=== PATIENT | male | born 1945 | race Caucasian/White ===

== ENCOUNTER 2017-10-03 14:47 | Inpatient (IN) | payer OTHER, BC ==
[2017-10-03 14:58] VITALS: BMI 17.7
--- NOTE | 2017-10-03 15:47 | DR.GENAD ---
HPI - PCP Primary Care Physician: ANAIS STODDARD - HPI Comment HPI Comment: PCP DR. COELLO PATIENT EVALUATED TODAY. HE HAVE COUGH AND CONGESTION FOR SEVERAL DAYS NOW. HAVING CHEST PAIN. - Complaint/Symptoms Chief Complaint Doctors Comments: SEIZURE AT THE [facility]. RELATIVES CALLED AND HERE FOR EVALUATION. HE IS WEAK AND HAVING HESDACHE. NO FEVER. RELATIVES SAY HE IS NOT COMPLAINT WITH HIS SEIZURE MEDICATION. 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 FAMILY STATES PT. HAS A HX. OF SEIZURES AND THE PT. HAD SLID OUT OF HIS CHAIR AT THE HOME. THEY BELIEVE TO THINK PT. HAD A SEIZURE BECAUSE ONCE THE FAMILY ARRIVED, PT. WAS INCOHERENT AND IN A DAZE. PT. ALSO HAS C/C/C. - Nurses notes reviewed Nurses Notes Review: Yes - Source History Provided: Family Member - Mode of Arrival Mode of Arrival: Wheelchair - Timing Onset of Chief Complaint: 10/03/17 Came on: Suddenly - Duration Duration: Constant Duration: Hours - Severity Severity: Moderate PMH - PMH Past Medical History: Yes Past Medical History: Hypertension, Seizures Past Medical History Comment: POOR CIRCULATION, OCCULDED CAROTID ARTERY Past Surgical History: Yes Surgical History: Ortho Surgery, Other Past Surgical History Comment: RIGHT BKA, HERNIA - Family History History of Family Medical Conditions: Yes Family Medical History Comment: ALCHOLISM - Social History Does patient currently use any type of tobacco product: Yes Have you used tobacco products in the last 12 months: Yes Type of Tobacco Use: Cigarettes Does any household member use tobacco: No Alcohol Use: None Do you use any recreational Drugs:: No Lives Where: Assisted Care - infectious screening In the last 2 months have you had wt loss of >10#?: NO Have you had fever, night sweats or hemotysis?: No Have you traveled outside the country in the last 6 months?: No Isolation: Standard ROS - Review of Systems Constitutional: Weakness, Fatigue. negative: Chills, Fever Eyes: No Symptoms Reported ENTM: No Symptoms Reported. negative: Ear Pain, Nose Discharge, Nose Congestion , Throat Pain Respiratoy: Non-Productive Cough, Short of Breath. negative: Wheezing, Hemoptysis Cardiovascular: Chest Pain Gastrointestinal/Abdominal: Abdominal Pain Genitourinary: No Symptoms Reported Neurological: Headache, Seizure, Weakness, Dizziness, Problems Walking Musculoskeletal: Joint Pain, Joint Swelling, Muscle Pain Integumentary: No Symptoms Reported, Other (RT BKA) Hematologic/Lymphatic: No Symptoms Reported Endocrine: No Symptoms Reported All Other Systems: Reviewed and Negative PE - Vital Signs Vitals: Temperature 99.1 F Pulse Rate [Apical] 96 Pulse Rate 100 Respiratory Rate 20 Blood Pressure [Left Arm] 100/55 Blood Pressure 127/59 O2 Sat by Pulse Oximetry 98 - General Limitations: No Limitations General Appearance: Alert - Head Head Exam: Normal Inspection - Eyes Eye exam: Normal Appearance - ENT ENT Exam: Normal External Ear Exam External Ear Exam: Normal External Inspection TM/Canal Exam: Bilateral Normal Nose Exam: Normal Nose Exam Mouth Exam: Normal Inspection Throat Exam: Normal Inspection - Neck Neck Exam: Trachea Midline - Chest Chest Inspection: Symmetric Chest Wall Rise - Respiratory Respiratory Exam: Normal Lung Sounds Bilat Respiratory Exam: Bilateral Clear to Auscultation - Cardiovascular Cardiovascular Exam: Regular Rate, Normal Rhythm, Normal Heart Sounds - Abdominal Exam Abdominal Exam: Normal Bowel Sounds, Soft. negative: Tenderness - Extremities Extremities Exam: Tenderness (RT BKA.) - Back Back Exam: Normal Inspection - Neurologic Neurological Exam: Alert, Oriented X3 - Psychiatric Psychiatric Exam: Normal Affect, Normal Mood - Skin Skin Exam: Normal Color MDM - Additional Information Additional Information Obtained From: Family - Differential Diagnosis Differential Diagnosis: SEIZURE, [place], GENERALIZE WEAKNESS, CVA, AMS Course - Treatment Treatment: SEE ORDERS. PATIENT TO TRANSFER TO CARDIOLOGY SERVICE. HE DID NOT WISH TO GO . WANT TO STAY AT THIS HOSPITAL HE WILL ACCEPT CARE WITHOUT CARDIOLOGY. - Education/Counseling Education/Counseling: Patient, Family, Education Educated On: Treatment, Diagnosis, Needs for Follow Up ROR - Labs Reviewed Laboratory Results Reviewed?: Yes Result Diagrams: 10/03/17 16:41 10/04/17 05:55 Laboratory: WBC 9.4 X10^3/uL (3.6-10.0) 10/03/17 16:41 RBC 4.09 X10^6/uL (4.7-6.0) L 10/03/17 16:41 Hgb 14.0 g/dL (13.5-18.0) 10/03/17 16:41 Hct 40.2 % (42.0-54.0) L 10/03/17 16:41 MCV 98.5 fL (80.0-100.0) 10/03/17 16:41 MCH 34.3 pg (27.0-34.0) H 10/03/17 16:41 MCHC 34.9 g/dL (33.0-35.0) 10/03/17 16:41 RDW 13.0 % (11.6-16.5) 10/03/17 16:41 Plt Count 137 X10^3/uL (150.0-450.0) L 10/03/17 16:41 MPV 8.6 fL (7.4-11.0) 10/03/17 16:41 Neut % 73.2 % (42.0-75.0) 10/03/17 16:41 Lymph % 15.7 % (21.0-51.0) L 10/03/17 16:41 [place] % 10.6 % (0.0-13.0) 10/03/17 16:41 Eos % 0.1 % (0.9-2.9) L 10/03/17 16:41 Baso % 0.4 % (0.2-1.0) 10/03/17 16:41 Neut # 6.9 x10^3/uL (2.2-4.8) H 10/03/17 16:41 Lymph # 1.5 X10^3/uL (1.3-2.9) 10/03/17 16:41 [place] # 1.0 x10^3/uL (0.3-0.8) H 10/03/17 16:41 Eos # 0.0 x10^3/uL (0.0-0.2) 10/03/17 16:41 Baso # 0.0 X10^3/uL (0.0-0.1) 10/03/17 16:41 Absolute Nucleated RBC 0.1 /100WBC 10/03/17 16:41 INR Target Range - 10/04/17 05:55 INR 1.11 (0.8-1.3) 10/04/17 05:55 PTT 46.2 SECONDS (22.9-36.5) H 10/04/17 05:55 PTT Comment - 10/04/17 05:55 Sodium 137 mmol/L (136-145) 10/04/17 05:55 Corrected Sodium TNP 10/04/17 05:55 Potassium 3.7 mmol/L (3.5-5.1) 10/04/17 05:55 Chloride 102 mmol/L (98-107) 10/04/17 05:55 Carbon Dioxide 25.5 mmol/L (21-32) 10/04/17 05:55 BUN 17 mg/dL (7-18) 10/04/17 05:55 Creatinine 0.92 mg/dL (0.70-1.30) 10/04/17 05:55 Est GFR (MDRD) Af Amer > 60 (>60) 10/04/17 05:55 Est GFR (MDRD) Non-Af > 60 (>60) 10/04/17 05:55 Glucose 78 mg/dL (65-99) 10/04/17 05:55 Calcium 7.9 mg/dL (8.5-10.1) L 10/04/17 05:55 Corrected Calcium 8.8 mg/dL (8.5-10.1) 10/04/17 05:55 Magnesium 1.8 mg/dL (1.7-2.9) 10/04/17 05:55 Total Bilirubin 0.20 mg/dL (0.2-1.0) 10/04/17 05:55 AST 99 Units/L (15-37) H 10/04/17 05:55 ALT 52 Units/L (12-78) 10/04/17 05:55 Alkaline Phosphatase 101 Units/L (46-116) 10/04/17 05:55 Creatine Kinase 3225 Units/L (39-308) H 10/04/17 02:00 CK-MB (CK-2) 7.2 ng/mL (0-4.0) H* 10/04/17 02:00 CK/CKMB % Calc 0.2 % (<4) 10/04/17 02:00 Troponin I 0.31 ng/mL (0-1.5) 10/04/17 02:00 Total Protein 6.3 g/dL (6.4-8.2) L 10/04/17 05:55 Albumin 2.9 g/dL (3.4-5.0) L 10/04/17 05:55 Globulin 3.4 g/dL (2.5-4.5) 10/04/17 05:55 Albumin/Globulin Ratio 0.9 Ratio (1.1-2.1) L 10/04/17 05:55 Triglycerides 74 mg/dL (0-150) 10/04/17 05:55 Cholesterol 131 mg/dL (0-200) 10/04/17 05:55 LDL Cholesterol, Calc 79 mg/dL (0-100) 10/04/17 05:55 HDL Cholesterol 37 mg/dL (40-60) L 10/04/17 05:55 Cholesterol/HDL Ratio 3.5 (0.0-5.0) 10/04/17 05:55 Specimen Type Clean catch urine 10/03/17 22:25 Urine Color Yellow (YELLOW) 10/03/17 22:25 Urine Appearance Clear (CLEAR) 10/03/17 22:25 Urine pH 5.0 (5.0 - 8.0) 10/03/17 22:25 Ur Specific [place] 1.020 (1.000-1.030) 10/03/17 22:25 Urine Protein 2+ (NEGATIVE) 10/03/17 22:25 Urine Glucose (UA) Negative (NEGATIVE) 10/03/17 22:25 Urine Ketones 1+ (NEGATIVE) 10/03/17 22:25 Urine Occult Blood 4+ (NEGATIVE) 10/03/17 22:25 Urine Nitrite Negative (NEGATIVE) 10/03/17 22:25 Urine Bilirubin Negative (NEGATIVE) 10/03/17 22:25 Urine Urobilinogen Normal (NORMAL) 10/03/17 22:25 Ur Leukocyte Esterase 1+ (NEGATIVE) 10/03/17 22:25 Urine RBC 4-8 /HPF (NEGATIVE) 10/03/17 22:25 Urine WBC 0-3 /HPF (NEGATIVE) 10/03/17 22:25 Ur Squamous Epith Cells Few /HPF (NEGATIVE) 10/03/17 22:25 Urine Bacteria Trace /HPF (NEGATIVE) 10/03/17 22:25 Urine Mucus Many /HPF (NEGATIVE) 10/03/17 22:25 Ur Culture Indicated? No/not indicated 10/03/17 22:25 Phenytoin 16.0 ug/mL (10-20) 10/04/17 05:55 - XRAY XRAY Findings: REPORT DISCUSS WITH PATIENT AND FAMILY. - EKG Rhythm: NSR (EKG NOTED.) - Diagnosis Discharge Problem: Abnormal cardiac enzyme level, Seizure Rhabdomyolysis Qualifiers: Rhabdomyolysis type: traumatic Encounter type: initial encounter Qualified Code (s): T79.6XXA - Traumatic ischemia of muscle, initial encounter - Discharge Plan Disposition: 09 ADMITTED INPATIENT Condition: Stable - Follow ups/Referrals - Instructions
--- NOTE | 2017-10-03 16:54 | RAD ---
Examination: Chest, PA and lateral views History: Seizure Findings: Normal heart size, essentially clear lungs and pleural spaces. There is no hilar or mediast inal disease. Rib fracture deformities are observed but do not appear acute. Impression: No acute chest findings. Reported By:
--- NOTE | 2017-10-03 17:03 | CT ---
HISTORY: Altered mental status Study: CT of the head Comparison: None Technique: Serial axial images were obtained from the skullbase to the vertex without infusion of IV contrast. Findings: The ventricles, sulci, and cisterns demonstrate an appearance consistent with a mild degree of genera lized atrophy. Patchy areas of decreased attenuation within the periventricular, subcortical, and sub insular white matter suggest changes of chronic small vessel ischemic disease. No evidence of signifi cant midline shift is identified. Images demonstrate partial opacification and mucosal thickening of the ethmoid air cells. Mild mucosal thickening of the bilateral maxillary sinuses and right sphenoid sinus are noted as well. If symptoms or clinical concern persist recommend continued follow-up for fu rther evaluation. IMPRESSION: No evidence of acute intracranial abnormality is appreciated. Mild generalized atrophy with findings consistent with changes of chronic small vessel ischemic disea se. Ethmoid, maxillary, and sphenoid sinus disease as noted above. Reported By:
[2017-10-03 17:13] LABS: BASOPHILS % (AUTO) 0.4 % (0.2-1.0); EOSINOPHILS % (AUTO) 0.1 % (0.9-2.9); HEMATOCRIT 40.2 % (42.0-54.0); LYMPHOCYTES # (AUTO) 1.5 X10^3/uL (1.3-2.9); LYMPHOCYTES % (AUTO) 15.7 % (21.0-51.0); MEAN CORPUSCULAR HEMOGLOBIN 34.3 pg (27.0-34.0); MEAN CORPUSCULAR HGB CONC 34.9 g/dL (33.0-35.0); MEAN CORPUSCULAR VOLUME 98.5 fL (80.0-100.0); MEAN PLATELET VOLUME 8.6 fL (7.4-11.0); MONOCYTES % (AUTO) 10.6 % (0.0-13.0); NEUTROPHILS # (AUTO) 6.9 x10^3/uL (2.2-4.8); NEUTROPHILS % (AUTO) 73.2 % (42.0-75.0); PLATELET COUNT 137 X10^3/uL (150.0-450.0); RED BLOOD COUNT 4.09 X10^6/uL (4.7-6.0); WHITE BLOOD COUNT 9.4 X10^3/uL (3.6-10.0)
[2017-10-03 17:30] LABS: BLOOD UREA NITROGEN 25 mg/dL (7-18); CALCIUM 8.9 mg/dL (8.5-10.1); CARBON DIOXIDE 29.3 mmol/L (21-32); CHLORIDE 100 mmol/L (98-107); CREATININE 1.03 mg/dL (0.70-1.30); SODIUM 136 mmol/L (136-145); TROPONIN I 0.45 ng/mL (0-1.5); eGFR BLACK RACES > 60 (>60); eGFR NON BLACK RACES > 60 (>60)
[2017-10-03 17:53] LABS: ALANINE AMINOTRANSFERASE 50 Units/L (12-78); ALBUMIN 3.6 g/dL (3.4-5.0); ALKALINE PHOSPHATASE 139 Units/L (46-116); ASPARTATE AMINO TRANSFERASE 73 Units/L (15-37); TOTAL PROTEIN 7.5 g/dL (6.4-8.2)
[2017-10-03 18:01] LABS: CKMB % 0.3 % (<4); CREATINE KINASE MB 8.8 ng/mL (0-4.0)
[2017-10-03 18:02] LABS: CREATINE KINASE 2699 Units/L (39-308)
[2017-10-03] MEDS ORDERED: CEREBYX INJ IVP ONE (19:21)
[2017-10-03 19:36] LABS: TROPONIN I 0.37 ng/mL (0-1.5)
[2017-10-03 19:38] LABS: CKMB % 0.3 % (<4)
[2017-10-03 19:39] LABS: CREATINE KINASE MB 8.2 ng/mL (0-4.0)
[2017-10-03] MEDS ORDERED: NS 100 ML IV 100 ML IV ONE (19:45)
[2017-10-03] MEDS ORDERED: PEPCID 20 MG IV PREMIX* 0 MG/0 ML BAG IV ONE (20:12)
[2017-10-03] MEDS ORDERED: PHENERGAN INJ 25 MG ONE (20:12)
[2017-10-03] MEDS ORDERED: NITROSTAT SL PRN (20:43)
[2017-10-03] MEDS ORDERED: ASPIRIN 81 MG CHEWTAB PO ONE (20:45)
[2017-10-03] MEDS ORDERED: DILANTIN CAP 100 MG EXT REL PO ONE (20:47)
[2017-10-03] MEDS: DILANTIN CAP 100 MG EXT REL PO SCH (22:02)
[2017-10-03] MEDS: NITRO-BID OINT 2% Multi-Dose tube TD SCH (22:02)
[2017-10-03] MEDS: NICOTINE PATCH TD SCH (22:11)
[2017-10-03] MEDS: NS 1000 ML 1,000 ML IV SCH (22:43)
[2017-10-03 22:56] LABS: BILIRUBIN,URINE NEGATIVE (NEGATIVE); BLOOD/HEMOGLOBIN,URINE 4+ (NEGATIVE); GLUCOSE, URINE NEGATIVE (NEGATIVE); KETONES,URINE 1+ (NEGATIVE); LEUKOCYTE ESTERASE ,URINE 1+ (NEGATIVE); NITRITES,URINE NEGATIVE (NEGATIVE); PROTEIN,URINE 2+ (NEGATIVE); UROBILINOGEN,URINE NORMAL (NORMAL)
[2017-10-03 23:16] LABS: APPEARANCE,URINE CLEAR (CLEAR); BACTERIA,URINE TRACE /HPF (NEGATIVE); COLOR,URINE YELLOW (YELLOW); MUCUS,URINE MANY /HPF (NEGATIVE); SQUAMOUS EPITHELIAL CELL,UR FEW /HPF (NEGATIVE)
[2017-10-03] MEDS ORDERED: MILK OF MAGNESIA PO PRN (23:53)
[2017-10-04] MEDS: COLACE CAP 100 MG PO SCH ×2 (02:31→21:08)
[2017-10-04 02:50] LABS: TROPONIN I 0.31 ng/mL (0-1.5)
[2017-10-04 02:56] LABS: CKMB % 0.2 % (<4); CREATINE KINASE MB 7.2 ng/mL (0-4.0)
[2017-10-04] MEDS: NITRO-BID OINT 2% Multi-Dose tube TD SCH ×4 (03:06→21:08)
[2017-10-04 06:43] LABS: ALANINE AMINOTRANSFERASE 52 Units/L (12-78); ALBUMIN 2.9 g/dL (3.4-5.0); ALKALINE PHOSPHATASE 101 Units/L (46-116); ASPARTATE AMINO TRANSFERASE 99 Units/L (15-37); BLOOD UREA NITROGEN 17 mg/dL (7-18); CALCIUM 7.9 mg/dL (8.5-10.1); CARBON DIOXIDE 25.5 mmol/L (21-32); CHLORIDE 102 mmol/L (98-107); CHOL/HDL RATIO 3.5 (0.0-5.0); CHOLESTEROL 131 mg/dL (0-200); COR CA(FOR HYPOALB) 8.8 mg/dL (8.5-10.1); CREATININE 0.92 mg/dL (0.70-1.30); HDL CHOLESTEROL 37 mg/dL (40-60); MAGNESIUM 1.8 mg/dL (1.7-2.9); SODIUM 137 mmol/L (136-145); TOTAL PROTEIN 6.3 g/dL (6.4-8.2); TRIGLYCERIDES 74 mg/dL (0-150); eGFR BLACK RACES > 60 (>60); eGFR NON BLACK RACES > 60 (>60)
[2017-10-04] MEDS: NICOTINE PATCH TD SCH (09:13)
[2017-10-04] MEDS: CHECK PATCH XX SCH ×2 (09:14→21:09)
[2017-10-04] MEDS: NS 1000 ML 1,000 ML IV SCH (09:16)
[2017-10-04] MEDS ORDERED: TYLENOL 325 MG TAB PO PRN (11:11)
[2017-10-04] MEDS ORDERED: ULTRAM PO PRN (11:11)
[2017-10-04] MEDS: VITAMIN C PO SCH ×2 (13:12→21:04)
[2017-10-04] MEDS: HEMOCYTE-PLUS PO SCH (13:12)
[2017-10-04] MEDS: PEPCID TAB 20 MG PO SCH ×2 (13:12→21:04)
[2017-10-04] MEDS: INDERAL TAB 10 MG PO SCH ×2 (13:12→21:04)
--- NOTE | 2017-10-04 13:18 | DR.H&P ---
H&P - History & Physical for Day of: H&P Date: 10/03/17 - Chief Complaint Chief Complaint: seizure activity - Allergies Allergies/Adverse Reactions: Allergies Allergy/AdvReac Type Severity Reaction Status Date / Time donepezil [From Aricept] Allergy Verified 10/03/17 20:57 Penicillins Allergy Verified 10/03/17 20:57 potassium Allergy Verified 10/03/17 20:57 potassium chloride Allergy Verified 10/03/17 20:57 SURGICAL TAPE Allergy Uncoded 10/03/17 20:57 - History of Present Illness History of Present Illness: is a 72 year old patient of ours who as brought to the emergency room by his family with reports of seizure activity. Patients family reports that he is a resident at [facility] in [place], [place]. They report that patient slid out of his chair at the home and was on the ground for an unknown amount of time. When staff arrived and found patient, he was noted to be incoherent and in a daze. Upon awaking, patient reported smelling something. Family reports that patient has a history significant for seizure disorder, and they believe that he had a seizure today. They also report that patient has had cough, cold, and congestion for the past week. Medical history includes: Seizure disorder, skin cancer, anxiety, HTN, Right BKA, and hernia repair. On arrival to the hospital patient noted to be oriented. Heart is regular in rate and rhythm. Bilateral lungs are noted to be clear to auscultation. Abdomen is round, soft, and non- tender with normal bowel sounds noted in all quadrants. He is noted to have had a right BKA. Weakness noted to all other extremities. On arrival, his vitals were 99.1, 100, 17, 94% RA, 127/59. Labs were obtained. Abnormal Labs include the following: RBC 4.09, Hct 40.2, MCH 34.3, Plt Count 137, BUN 25, AST 73, Alk Phos 139, Creatine Kinase 2699, 2807, CKMB 8.8, 8.2, A/G Ratio 0.9, Phenytoin 1.4. Urinalysis revealed: Protein 2+, Ketones 1+, Occult Blood 4+, Leuk Est 1+, RBC 4-8, WBC 0-3, Bacteria Trace, Mucus Many. EKG reports: Sinus Rhythm. Rate= 96. Chest X-Ray reports: No acute chest findings. Brain CT reports: No evidence of acute intracranial abnormality is appreciated. Mild generalized atrophy with findings consistent with changes of chronic small vessel ischemic disease. Ethmoid, maxillary and sphenoid sinus disease as noted above. Patient given a one-time dose of Cerebyx for low phenytoin of 1.4. Elevated creatine kinase and CKMB of 8.8 is indicative of rhabdomyolysis. We admitted patient to the hospital for further treatment and evaluation. We started him on Normal saline at 75ml/hr for rehydration. Due to elevated cardiac enzymes, we will also obtain serial cardiac enzymes and EKGs. We plan to follow up with AM labs and continue to monitor patient. - Past Medical History Past Medical History: Anxiety, Hypertension, Seizures Additional Medical History: skin cancer - Past Surgical History Surgical History: Ortho Surgery, Other Additional Surgical History: right BKA - Family History Family Medical History: Cancer, Hypertension - Social History Does patient currently use any type of tobacco product: Yes Have you used tobacco products in the last 12 months: Yes Type of Tobacco Use: Cigarettes Does any household member use tobacco: No Alcohol Use: None Drug Use: None - Medications Home Medications: Acetaminophen [Tylenol 325 mg Tab] 2 tabs PO Q4H PRN 10/03/17 [History Confirmed 10/03/17] Ascorbic Acid [Vitamin C] 500 mg PO BID 10/03/17 [History Confirmed 10/03/17] Carbamazepine [Tegretol Tab 200 mg (Plain)] 200 mg PO BID 10/03/17 [History Confirmed 10/03/17] Docusate Sodium [Colace Cap 100 mg] 100 mg PO BID 10/03/17 [History Confirmed ] Famotidine [Famotidine] 1 tab PO BID 10/03/17 [History Confirmed 10/03/17] Ferrous Sulfate 325 mg PO DAILY 10/03/17 [History Confirmed 10/03/17] Ketoconazole 2% Cream [Nizoral Cream] 1 applic EXT BID PRN 10/03/17 [History Confirmed 10/03/17] Multivit-Min/Iron Fum/Folic AC [Multi Vitamin and Mineral] 1 tab PO DAILY [History Confirmed 10/03/17] Propranolol HCl 10 mg PO BID 10/03/17 [History Confirmed 10/03/17] Rosuvastatin Calcium [Crestor] 20 mg PO DAILY 10/03/17 [History Confirmed ] Tramadol HCl [ULTRAM 50 MG *] 50 mg PO Q6H PRN 10/03/17 [History Confirmed 10/03] - Review of Systems Constitutional: Weakness. denies: Fever Eyes: No Symptoms Reported ENT: No Symptoms Reported, Nose Congestion Respiratory: No Symptoms Reported, Cough Cardiovascular: Light Headedness Gastrointestinal: No Symptoms Reported. denies: Nausea, Vomiting, Abdominal Pain, Diarrhea, Constipation, Melena, Hematochezia Genitourinary: No Symptoms Reported. denies: See HPI, Dysuria, Frequency, Incontinence, Hematuria, Retention, Other Musculoskeletal: No Symptoms Reported. denies: See HPI, Shoulder Pain, Arm Pain , Back Pain, Hand Pain, Leg Pain, Foot Pain, Neck Pain, Other Skin: No Symptoms Reported. denies: See HPI, Rash, Lesions, Jaundice, Bruising , Wound, Ecchymosis, Other Neurological: Weakness, Seizures - Physical Exam Vital Signs: Temperature 97.7 F Pulse Rate [Apical] 99 Pulse Rate 100 Respiratory Rate 23 Blood Pressure [Left Arm] 115/64 Blood Pressure 127/59 O2 Sat by Pulse Oximetry 98 Oriented: Normal. negative: Time, Person, Place, Not Oriented, Unable to test, Other Eyes: Normal. negative: Blurred Vision, Diplopia, Discharge, Pain, Redness, Photophobia, Other Ear: Normal. negative: Right, Left, Swelling, Ecchymosis, Hemotypanum, Abrasion , Laceration Nose: Other (nasal congestion ) Throat: Normal Respiratory: Clear Throughout Cardiovascular: Normal. negative: S3, S4, Murmur : Normal. negative: Dysuria, Hematuria, Frequency, Discharge, Testicular Pain , Bleeding, , Other Auscultation: Bowel Sounds: Normal. negative: Bruit, Absent, Increased, Decreased, High Pitched, Other Palpation: Normal. negative: Spleen Enlarged, Liver Enlarged, Mass Pulsatile, Other Tenderness: Normal. negative: Rebound, Guarding, Rigidity Skin: Normal Musculoskeletal: Instability Psychiatric: Normal Mood Description: Calm Affect: Normal Speech Pattern: Clear - Assessment/Plan (1) Rhabdomyolysis Qualifiers: Rhabdomyolysis type: traumatic Encounter type: initial encounter Qualified Code(s): T79.6XXA - Traumatic ischemia of muscle, initial encounter Status: Acute Plan: NORMAL SALINE AT 75ML/HR, CONTINUE TO MONITOR (2) Abnormal cardiac enzyme level Status: Acute Plan: serial cardiac enzymes, EKG, groundwater monitoring technician, continue to monitor (3) Seizure Status: Acute Plan: continue dilantin 300mg po HS, continue to monitor
[2017-10-04] MEDS: DILANTIN CAP 100 MG EXT REL PO SCH (21:03)
[2017-10-05] MEDS: NITRO-BID OINT 2% Multi-Dose tube TD SCH ×4 (03:10→21:06)
[2017-10-05 05:26] LABS: BASOPHILS % (AUTO) 0.7 % (0.2-1.0); EOSINOPHILS # (AUTO) 0.1 x10^3/uL (0.0-0.2); EOSINOPHILS % (AUTO) 1.3 % (0.9-2.9); HEMATOCRIT 35.1 % (42.0-54.0); HEMOGLOBIN 12.2 g/dL (13.5-18.0); LYMPHOCYTES # (AUTO) 1.4 X10^3/uL (1.3-2.9); LYMPHOCYTES % (AUTO) 30.4 % (21.0-51.0); MEAN CORPUSCULAR HEMOGLOBIN 34.6 pg (27.0-34.0); MEAN CORPUSCULAR HGB CONC 34.9 g/dL (33.0-35.0); MEAN CORPUSCULAR VOLUME 99.1 fL (80.0-100.0); MEAN PLATELET VOLUME 9.1 fL (7.4-11.0); MONOCYTES # (AUTO) 0.9 x10^3/uL (0.3-0.8); NEUTROPHILS # (AUTO) 2.3 x10^3/uL (2.2-4.8); NEUTROPHILS % (AUTO) 49.6 % (42.0-75.0); PLATELET COUNT 104 X10^3/uL (150.0-450.0); RED BLOOD COUNT 3.54 X10^6/uL (4.7-6.0); RED CELL DISTRIBUTION WIDTH 12.8 % (11.6-16.5); WHITE BLOOD COUNT 4.7 X10^3/uL (3.6-10.0)
[2017-10-05] MEDS: NS 1000 ML 1,000 ML IV SCH ×2 (05:52→09:30)
[2017-10-05 06:00] LABS: ALANINE AMINOTRANSFERASE 52 Units/L (12-78); ALBUMIN 2.6 g/dL (3.4-5.0); ALKALINE PHOSPHATASE 93 Units/L (46-116); ASPARTATE AMINO TRANSFERASE 89 Units/L (15-37); BLOOD UREA NITROGEN 13 mg/dL (7-18); CALCIUM 7.9 mg/dL (8.5-10.1); CHLORIDE 102 mmol/L (98-107); CREATINE KINASE MB 2.4 ng/mL (0-4.0); CREATININE 0.49 mg/dL (0.70-1.30); SODIUM 134 mmol/L (136-145); TOTAL PROTEIN 5.9 g/dL (6.4-8.2); TROPONIN I 0.23 ng/mL (0-1.5); eGFR BLACK RACES > 60 (>60); eGFR NON BLACK RACES > 60 (>60)
[2017-10-05] MEDS ORDERED: CRESTOR TAB 10 MG PO SCH (09:00)
[2017-10-05] MEDS: NICOTINE PATCH TD SCH (09:28)
[2017-10-05] MEDS: INDERAL TAB 10 MG PO SCH ×2 (09:28→21:11)
[2017-10-05] MEDS: TAB-A-VITE PO SCH (09:29)
[2017-10-05] MEDS: PEPCID TAB 20 MG PO SCH ×2 (09:29→21:05)
[2017-10-05] MEDS: CHECK PATCH XX SCH ×2 (09:29→21:05)
[2017-10-05] MEDS: HEMOCYTE-PLUS PO SCH (09:29)
[2017-10-05] MEDS: VITAMIN C PO SCH ×2 (09:29→21:05)
[2017-10-05] MEDS: CRESTOR TAB 10 MG PO SCH ×2 (09:30→21:05)
[2017-10-05] MEDS: ROCEPHIN VIAL 1 GM 1 GM in NS 100 ML IV + SPIKE MINIBAG* 100 ML IV SCH (11:02)
[2017-10-05] MEDS: MILK OF MAGNESIA PO SCH ×2 (16:37→21:07)
[2017-10-05] MEDS ORDERED: MIRALAX POWDER (1 DOSE 17GM) PO SCH (21:00)
[2017-10-05] MEDS: COLACE CAP 100 MG PO SCH (21:04)
[2017-10-05] MEDS: DILANTIN CAP 100 MG EXT REL PO SCH (21:05)
--- NOTE | 2017-10-05 21:16 | PCM.PROG ---
Progress Note - Progress Note for Day of Date: 10/04/17 - Subjective Subjective: IS BEING TREATED FOR RHABDOMYOLYSIS AND SEIZURE ACTIVITY. TODAY, HE IS ALERT AND ORIENTED, LYING IN BED ON MORNING ROUNDS. HE IS NOTED WITH COMPLAINTS OF WEAKNESS AND GENERALIZED BODY ACHES. ON EXAMINATION , HEART IS REGULAR IN RATE AND RHYTHM. BILATERAL LUNGS ARE NOTED WITH SCATTERED WHEEZING. HE IS ALSO NOTED WITH A PERSISTENT COUGH. ABDOMEN IS FLAT, SOFT, AND NON-TENDER WITH NORMAL BOWEL SOUNDS NOTED IN ALL QUADRANTS. THERE IS WEAKNESS NOTED TO ALL EXTREMITIES. HE HAS A RIGHT BKA. HIS VITALS THIS MORNING ARE 97.7- 109-19-100%-107/58. AT 18:50 LAST NIGHT, HIS CREATINE KINASE WAS NOTED TO BE 2807. THIS MORNING, IT IS NOTED TO BE 3225. CK-MG 7.2. TROPONIN 0.31. THIS IS A DECREASE COMPARED TO THE PREVIOUS NIGHTS CARDIAC PROFILE. MOST RECENT EKG REPORTS SINUS RHYTHM WITH HR 91. TODAY, WE PLAN TO HAVE PHYSICAL THERAPY AND OCCUPATIONAL THERAPY EVALUATE PATIENT. OTHERWISE, WE WILL CONTINUE WITH IV HYDRATION AND INCREASE IV FLUIDS TO 125ML/HR. WE PLAN TO FOLLOW UP WITH AM LABS AND CONTINUE TO MONITOR PATIENT. - Past Medical Family Social History Past Med/Fam/Surg Hx: No changes since H&P Allergies: Allergies donepezil [From Aricept] Allergy (Verified 10/03/17 20:57) Penicillins Allergy (Verified 10/03/17 20:57) potassium Allergy (Verified 10/03/17 20:57) potassium chloride Allergy (Verified 10/03/17 20:57) SURGICAL TAPE Allergy (Uncoded 10/03/17 20:57) - Review of Systems ROS: No change since H&P - Vital Signs and I&O's Vital Signs: Temperature 98.0 F Pulse Rate [Apical] 96 Pulse Rate 100 Respiratory Rate 22 Blood Pressure [Left Arm] 102/62 Blood Pressure 127/59 O2 Sat by Pulse Oximetry 92 Intake and Output: Intake & Output 10/03/17 10/04/17 10/05/17 10/06/17 11:59 11:59 11:59 11:59 Intake Total 775 3670 1581 Output Total 400 1450 500 Balance 375 2220 1081 - Physical Exam Oriented: Normal. negative: Time, Person, Place, Not Oriented, Unable to test, Other Eyes: Normal. negative: Blurred Vision, Diplopia, Discharge, Pain, Redness, Photophobia, Other Ear: Normal. negative: Right, Left, Swelling, Ecchymosis, Hemotypanum, Abrasion , Laceration Nose: Other (nasal congestion ) Throat: Normal Respiratory: Generalized, Wheezes Cardiovascular: Normal. negative: S3, S4, Murmur : Normal. negative: Dysuria, Hematuria, Frequency, Discharge, Testicular Pain , Bleeding, , Other Auscultation: Bowel Sounds: Normal. negative: Bruit, Absent, Increased, Decreased, High Pitched, Other Palpation: Normal Tenderness: Normal. negative: Rebound, Guarding, Rigidity Skin: Normal Musculoskeletal: Instability Psychiatric: Normal Mood Description: Calm Affect: Normal Speech Pattern: Clear, Appropriate - Laboratory and Diagnostics Result Diagrams: 10/05/17 04:45 10/05/17 04:45 Labs: Laboratory WBC 4.7 X10^3/uL (3.6-10.0) 10/05/17 04:45 RBC 3.54 X10^6/uL (4.7-6.0) L 10/05/17 04:45 Hgb 12.2 g/dL (13.5-18.0) L 10/05/17 04:45 Hct 35.1 % (42.0-54.0) L 10/05/17 04:45 MCV 99.1 fL (80.0-100.0) 10/05/17 04:45 MCH 34.6 pg (27.0-34.0) H 10/05/17 04:45 MCHC 34.9 g/dL (33.0-35.0) 10/05/17 04:45 RDW 12.8 % (11.6-16.5) 10/05/17 04:45 Plt Count 104 X10^3/uL (150.0-450.0) L 10/05/17 04:45 MPV 9.1 fL (7.4-11.0) 10/05/17 04:45 Neut % 49.6 % (42.0-75.0) 10/05/17 04:45 Lymph % 30.4 % (21.0-51.0) 10/05/17 04:45 [place] % 18.0 % (0.0-13.0) H 10/05/17 04:45 Eos % 1.3 % (0.9-2.9) 10/05/17 04:45 Baso % 0.7 % (0.2-1.0) 10/05/17 04:45 Neut # 2.3 x10^3/uL (2.2-4.8) 10/05/17 04:45 Lymph # 1.4 X10^3/uL (1.3-2.9) 10/05/17 04:45 [place] # 0.9 x10^3/uL (0.3-0.8) H 10/05/17 04:45 Eos # 0.1 x10^3/uL (0.0-0.2) 10/05/17 04:45 Baso # 0.0 X10^3/uL (0.0-0.1) 10/05/17 04:45 Absolute Nucleated RBC 0.0 /100WBC 10/05/17 04:45 INR Target Range - 10/04/17 05:55 INR 1.11 (0.8-1.3) 10/04/17 05:55 PTT 46.2 SECONDS (22.9-36.5) H 10/04/17 05:55 PTT Comment - 10/04/17 05:55 Sodium 134 mmol/L (136-145) L 10/05/17 04:45 Corrected Sodium TNP 10/05/17 04:45 Potassium 3.7 mmol/L (3.5-5.1) 10/05/17 04:45 Chloride 102 mmol/L (98-107) 10/05/17 04:45 Carbon Dioxide 23.0 mmol/L (21-32) 10/05/17 04:45 BUN 13 mg/dL (7-18) 10/05/17 04:45 Creatinine 0.49 mg/dL (0.70-1.30) L 10/05/17 04:45 Est GFR (MDRD) Af Amer > 60 (>60) 10/05/17 04:45 Est GFR (MDRD) Non-Af > 60 (>60) 10/05/17 04:45 Glucose 85 mg/dL (65-99) 10/05/17 04:45 Calcium 7.9 mg/dL (8.5-10.1) L 10/05/17 04:45 Corrected Calcium 9.0 mg/dL (8.5-10.1) 10/05/17 04:45 Magnesium 1.8 mg/dL (1.7-2.9) 10/04/17 05:55 Total Bilirubin 0.30 mg/dL (0.2-1.0) 10/05/17 04:45 AST 89 Units/L (15-37) H 10/05/17 04:45 ALT 52 Units/L (12-78) 10/05/17 04:45 Alkaline Phosphatase 93 Units/L (46-116) 10/05/17 04:45 Creatine Kinase > 1000 Units/L (39-308) H 10/05/17 04:45 CK-MB (CK-2) 2.4 ng/mL (0-4.0) 10/05/17 04:45 CK/CKMB % Calc 0.0 % (<4) 10/05/17 04:45 Troponin I 0.23 ng/mL (0-1.5) 10/05/17 04:45 Total Protein 5.9 g/dL (6.4-8.2) L 10/05/17 04:45 Albumin 2.6 g/dL (3.4-5.0) L 10/05/17 04:45 Globulin 3.3 g/dL (2.5-4.5) 10/05/17 04:45 Albumin/Globulin Ratio 0.8 Ratio (1.1-2.1) L 10/05/17 04:45 Triglycerides 74 mg/dL (0-150) 10/04/17 05:55 Cholesterol 131 mg/dL (0-200) 10/04/17 05:55 LDL Cholesterol, Calc 79 mg/dL (0-100) 10/04/17 05:55 HDL Cholesterol 37 mg/dL (40-60) L 10/04/17 05:55 Cholesterol/HDL Ratio 3.5 (0.0-5.0) 10/04/17 05:55 Specimen Type Clean catch urine 10/03/17 22:25 Urine Color Yellow (YELLOW) 10/03/17 22:25 Urine Appearance Clear (CLEAR) 10/03/17 22:25 Urine pH 5.0 (5.0 - 8.0) 10/03/17 22:25 Ur Specific [place] 1.020 (1.000-1.030) 10/03/17 22:25 Urine Protein 2+ (NEGATIVE) 10/03/17 22:25 Urine Glucose (UA) Negative (NEGATIVE) 10/03/17 22:25 Urine Ketones 1+ (NEGATIVE) 10/03/17 22:25 Urine Occult Blood 4+ (NEGATIVE) 10/03/17 22:25 Urine Nitrite Negative (NEGATIVE) 10/03/17 22:25 Urine Bilirubin Negative (NEGATIVE) 10/03/17 22:25 Urine Urobilinogen Normal (NORMAL) 10/03/17 22:25 Ur Leukocyte Esterase 1+ (NEGATIVE) 10/03/17 22:25 Urine RBC 4-8 /HPF (NEGATIVE) 10/03/17 22:25 Urine WBC 0-3 /HPF (NEGATIVE) 10/03/17 22:25 Ur Squamous Epith Cells Few /HPF (NEGATIVE) 10/03/17 22:25 Urine Bacteria Trace /HPF (NEGATIVE) 10/03/17 22:25 Urine Mucus Many /HPF (NEGATIVE) 10/03/17 22:25 Ur Culture Indicated? No/not indicated 10/03/17 22:25 Phenytoin 16.0 ug/mL (10-20) 10/04/17 05:55 - Plan (1) Rhabdomyolysis Status: Acute Qualifiers: Rhabdomyolysis type: traumatic Encounter type: initial encounter Qualified Code(s): T79.6XXA - Traumatic ischemia of muscle, initial encounter Plan: NORMAL SALINE AT 125ML/HR, CONTINUE TO MONITOR (2) Abnormal cardiac enzyme level Status: Acute Plan: serial cardiac enzymes, EKG, electronic device monitor, continue to monitor (3) Seizure Status: Acute Plan: continue dilantin 300mg po HS, continue to monitor
[2017-10-06] MEDS: NS 1000 ML 1,000 ML IV SCH (01:35)
[2017-10-06] MEDS: NITRO-BID OINT 2% Multi-Dose tube TD SCH ×4 (04:43→21:28)
[2017-10-06 06:13] LABS: BASOPHILS % (AUTO) 0.3 % (0.2-1.0); EOSINOPHILS # (AUTO) 0.1 x10^3/uL (0.0-0.2); EOSINOPHILS % (AUTO) 2.3 % (0.9-2.9); HEMATOCRIT 32.5 % (42.0-54.0); HEMOGLOBIN 11.5 g/dL (13.5-18.0); LYMPHOCYTES # (AUTO) 1.5 X10^3/uL (1.3-2.9); LYMPHOCYTES % (AUTO) 31.9 % (21.0-51.0); MEAN CORPUSCULAR HEMOGLOBIN 34.5 pg (27.0-34.0); MEAN CORPUSCULAR HGB CONC 35.2 g/dL (33.0-35.0); MEAN CORPUSCULAR VOLUME 97.9 fL (80.0-100.0); MEAN PLATELET VOLUME 8.8 fL (7.4-11.0); MONOCYTES # (AUTO) 0.7 x10^3/uL (0.3-0.8); MONOCYTES % (AUTO) 15.3 % (0.0-13.0); NEUTROPHILS # (AUTO) 2.3 x10^3/uL (2.2-4.8); NEUTROPHILS % (AUTO) 50.2 % (42.0-75.0); PLATELET COUNT 104 X10^3/uL (150.0-450.0); RED BLOOD COUNT 3.32 X10^6/uL (4.7-6.0); RED CELL DISTRIBUTION WIDTH 12.7 % (11.6-16.5); WHITE BLOOD COUNT 4.6 X10^3/uL (3.6-10.0)
[2017-10-06 06:50] LABS: ALANINE AMINOTRANSFERASE 51 Units/L (12-78); ALBUMIN 2.4 g/dL (3.4-5.0); ALKALINE PHOSPHATASE 90 Units/L (46-116); ASPARTATE AMINO TRANSFERASE 63 Units/L (15-37); BLOOD UREA NITROGEN 9 mg/dL (7-18); CALCIUM 7.8 mg/dL (8.5-10.1); CARBON DIOXIDE 25.1 mmol/L (21-32); CHLORIDE 105 mmol/L (98-107); CKMB % 0.3 % (<4); COR CA(FOR HYPOALB) 9.1 mg/dL (8.5-10.1); CREATINE KINASE 971 Units/L (39-308); CREATINE KINASE MB 2.5 ng/mL (0-4.0); CREATININE 0.45 mg/dL (0.70-1.30); SODIUM 137 mmol/L (136-145); TOTAL PROTEIN 5.6 g/dL (6.4-8.2); TROPONIN I 0.24 ng/mL (0-1.5); eGFR BLACK RACES > 60 (>60); eGFR NON BLACK RACES > 60 (>60)
[2017-10-06] MEDS: CHECK PATCH XX SCH ×2 (09:00→21:21)
[2017-10-06] MEDS: NICOTINE PATCH TD SCH (09:56)
[2017-10-06] MEDS: VITAMIN C PO SCH ×2 (09:57→21:28)
[2017-10-06] MEDS: HEMOCYTE-PLUS PO SCH (09:57)
[2017-10-06] MEDS: TAB-A-VITE PO SCH (09:57)
[2017-10-06] MEDS: INDERAL TAB 10 MG PO SCH ×2 (09:57→21:26)
[2017-10-06] MEDS: PEPCID TAB 20 MG PO SCH ×2 (09:57→21:29)
[2017-10-06] MEDS: MILK OF MAGNESIA PO SCH ×4 (09:58→21:30)
[2017-10-06] MEDS: ROCEPHIN VIAL 1 GM 1 GM in NS 100 ML IV + SPIKE MINIBAG* 100 ML IV SCH (10:00)
[2017-10-06 13:01] LABS: CKMB % 0.1 % (<4); CREATINE KINASE 2026 Units/L (39-308)
--- NOTE | 2017-10-06 13:02 | PCM.PROG ---
Progress Note - Progress Note for Day of Date: 10/05/17 - Subjective Subjective: IS BEING TREATED FOR RHABDOMYOLYSIS AND SEIZURE ACTIVITY. TODAY, HE IS ALERT AND ORIENTED, LYING IN BED ON MORNING ROUNDS. HE CONTINUES WITH COMPLAINTS OF WEAKNESS AND PAIN IN LEGS. HE ALSO CONTINUES WITH COMPLAINTS OF COUGH AND CONGESTION. ON EXAMINATION, HE IS NOTED WITH A THIN POST NASAL DRIP. HEART IS REGULAR IN RATE AND RHYTHM. BILATERAL LUNGS CONTINUE WITH SCATTERED WHEEZING. HE CONTINUES WITH PERSISTENT COUGH. ABDOMEN IS FLAT, SOFT, AND NON-TENDER WITH HYPOACTIVE BOWEL SOUNDS NOTED IN ALL QUADRANTS. THERE IS WEAKNESS NOTED TO ALL EXTREMITIES. HIS VITALS THIS MORNING ARE 98.9-89-21-93% -111/56. WE OBTAINED LABS THIS MORNING. ABNORMAL LAB VALUES INCLUDE THE FOLLOWING: RBC 3.54, HGB 12.2, HCT 35.1, SODIUM 134, CREATININE 0.49, CALCIUM 7.9, AST 89, CREATINE KINASE DECREASED FROM 3,225 TO SLIGHTLY GREATHER THAN 1, 000, TOTAL PROTEIN 5.9, ALBUMIN 2.6. PHYSICAL THERAPY EVALUATED PATIENT YESTERDAY AND FEEL THAT HE WILL BENEFIT FROM SKILLED THERAPY. TODAY, WE WILL START ROCEPHIN 1GM IV DAILY FOR RESPIRATORY SYMPTOMS AND DECREASE CRESTOR TO 5MG AT BEDTIME, THE HIGH DOSAGE MAY BE A CONTRIBUTING FACTOR TO THE RHABDOMYOLYSIS. OTHERWISE, WE WILL CONTINUE WITH AGGRESSIVE IV HYDRATION. WE PLAN TO FOLLOW UP WITH AM LABS AND CONTINUE TO MONITOR PATIENT. - Past Medical Family Social History Past Med/Fam/Surg Hx: No changes since H&P Allergies: Allergies donepezil [From Aricept] Allergy (Verified 10/03/17 20:57) Penicillins Allergy (Verified 10/03/17 20:57) potassium Allergy (Verified 10/03/17 20:57) potassium chloride Allergy (Verified 10/03/17 20:57) SURGICAL TAPE Allergy (Uncoded 10/03/17 20:57) - Review of Systems ROS: No change since H&P - Vital Signs and I&O's Vital Signs: Temperature 99.0 F Pulse Rate [Apical] 76 Pulse Rate 100 Respiratory Rate 17 Blood Pressure [Left Arm] 110/59 Blood Pressure 127/59 O2 Sat by Pulse Oximetry 98 Intake and Output: Intake & Output 10/04/17 10/05/17 10/06/17 10/07/17 11:59 11:59 11:59 11:59 Intake Total 775 3670 2581 Output Total 400 1450 950 Balance 375 2220 1631 - Physical Exam Oriented: Normal. negative: Time, Person, Place, Not Oriented, Unable to test, Other Eyes: Normal. negative: Blurred Vision, Diplopia, Discharge, Pain, Redness, Photophobia, Other Ear: Normal. negative: Right, Left, Swelling, Ecchymosis, Hemotypanum, Abrasion , Laceration Nose: Other (nasal congestion ) Throat: Normal Respiratory: Generalized, Wheezes Cardiovascular: Normal. negative: S3, S4, Murmur : Normal. negative: Dysuria, Hematuria, Frequency, Discharge, Testicular Pain , Bleeding, , Other Auscultation: Bowel Sounds: Normal. negative: Bruit, Absent, Increased, Decreased, High Pitched, Other Palpation: Normal Tenderness: Normal. negative: Rebound, Guarding, Rigidity Skin: Normal Musculoskeletal: Instability Psychiatric: Normal Mood Description: Calm Affect: Normal Speech Pattern: Clear, Appropriate - Laboratory and Diagnostics Result Diagrams: 10/08/17 04:50 10/08/17 04:50 Labs: Laboratory WBC 4.6 X10^3/uL (3.6-10.0) 10/06/17 05:31 RBC 3.32 X10^6/uL (4.7-6.0) L 10/06/17 05:31 Hgb 11.5 g/dL (13.5-18.0) L 10/06/17 05:31 Hct 32.5 % (42.0-54.0) L 10/06/17 05:31 MCV 97.9 fL (80.0-100.0) 10/06/17 05:31 MCH 34.5 pg (27.0-34.0) H 10/06/17 05:31 MCHC 35.2 g/dL (33.0-35.0) H 10/06/17 05:31 RDW 12.7 % (11.6-16.5) 10/06/17 05:31 Plt Count 104 X10^3/uL (150.0-450.0) L 10/06/17 05:31 MPV 8.8 fL (7.4-11.0) 10/06/17 05:31 Neut % 50.2 % (42.0-75.0) 10/06/17 05:31 Lymph % 31.9 % (21.0-51.0) 10/06/17 05:31 Simpson % 15.3 % (0.0-13.0) H 10/06/17 05:31 Eos % 2.3 % (0.9-2.9) 10/06/17 05:31 Baso % 0.3 % (0.2-1.0) 10/06/17 05:31 Neut # 2.3 x10^3/uL (2.2-4.8) 10/06/17 05:31 Lymph # 1.5 X10^3/uL (1.3-2.9) 10/06/17 05:31 Simpson # 0.7 x10^3/uL (0.3-0.8) 10/06/17 05:31 Eos # 0.1 x10^3/uL (0.0-0.2) 10/06/17 05:31 Baso # 0.0 X10^3/uL (0.0-0.1) 10/06/17 05:31 Absolute Nucleated RBC 0.0 /100WBC 10/06/17 05:31 INR Target Range - 10/04/17 05:55 INR 1.11 (0.8-1.3) 10/04/17 05:55 PTT 46.2 SECONDS (22.9-36.5) H 10/04/17 05:55 PTT Comment - 10/04/17 05:55 Sodium 137 mmol/L (136-145) 10/06/17 05:31 Corrected Sodium TNP 10/06/17 05:31 Potassium 3.4 mmol/L (3.5-5.1) L 10/06/17 05:31 Chloride 105 mmol/L (98-107) 10/06/17 05:31 Carbon Dioxide 25.1 mmol/L (21-32) 10/06/17 05:31 BUN 9 mg/dL (7-18) 10/06/17 05:31 Creatinine 0.45 mg/dL (0.70-1.30) L 10/06/17 05:31 Est GFR (MDRD) Af Amer > 60 (>60) 10/06/17 05:31 Est GFR (MDRD) Non-Af > 60 (>60) 10/06/17 05:31 Glucose 85 mg/dL (65-99) 10/06/17 05:31 Calcium 7.8 mg/dL (8.5-10.1) L 10/06/17 05:31 Corrected Calcium 9.1 mg/dL (8.5-10.1) 10/06/17 05:31 Magnesium 1.8 mg/dL (1.7-2.9) 10/04/17 05:55 Total Bilirubin 0.20 mg/dL (0.2-1.0) 10/06/17 05:31 AST 63 Units/L (15-37) H 10/06/17 05:31 ALT 51 Units/L (12-78) 10/06/17 05:31 Alkaline Phosphatase 90 Units/L (46-116) 10/06/17 05:31 Creatine Kinase 971 Units/L (39-308) H 10/06/17 05:31 CK-MB (CK-2) 2.5 ng/mL (0-4.0) 10/06/17 05:31 CK/CKMB % Calc 0.3 % (<4) 10/06/17 05:31 Troponin I 0.24 ng/mL (0-1.5) 10/06/17 05:31 Total Protein 5.6 g/dL (6.4-8.2) L 10/06/17 05:31 Albumin 2.4 g/dL (3.4-5.0) L 10/06/17 05:31 Globulin 3.2 g/dL (2.5-4.5) 10/06/17 05:31 Albumin/Globulin Ratio 0.8 Ratio (1.1-2.1) L 10/06/17 05:31 Triglycerides 74 mg/dL (0-150) 10/04/17 05:55 Cholesterol 131 mg/dL (0-200) 10/04/17 05:55 LDL Cholesterol, Calc 79 mg/dL (0-100) 10/04/17 05:55 HDL Cholesterol 37 mg/dL (40-60) L 10/04/17 05:55 Cholesterol/HDL Ratio 3.5 (0.0-5.0) 10/04/17 05:55 Specimen Type Clean catch urine 10/03/17 22:25 Urine Color Yellow (YELLOW) 10/03/17 22:25 Urine Appearance Clear (CLEAR) 10/03/17 22:25 Urine pH 5.0 (5.0 - 8.0) 10/03/17 22:25 Ur Specific [place] 1.020 (1.000-1.030) 10/03/17 22:25 Urine Protein 2+ (NEGATIVE) 10/03/17 22:25 Urine Glucose (UA) Negative (NEGATIVE) 10/03/17 22:25 Urine Ketones 1+ (NEGATIVE) 10/03/17 22:25 Urine Occult Blood 4+ (NEGATIVE) 10/03/17 22:25 Urine Nitrite Negative (NEGATIVE) 10/03/17 22:25 Urine Bilirubin Negative (NEGATIVE) 10/03/17 22:25 Urine Urobilinogen Normal (NORMAL) 10/03/17 22:25 Ur Leukocyte Esterase 1+ (NEGATIVE) 10/03/17 22:25 Urine RBC 4-8 /HPF (NEGATIVE) 10/03/17 22:25 Urine WBC 0-3 /HPF (NEGATIVE) 10/03/17 22:25 Ur Squamous Epith Cells Few /HPF (NEGATIVE) 10/03/17 22:25 Urine Bacteria Trace /HPF (NEGATIVE) 10/03/17 22:25 Urine Mucus Many /HPF (NEGATIVE) 10/03/17 22:25 Ur Culture Indicated? No/not indicated 10/03/17 22: Phenytoin 16.0 ug/mL (10-20) 10/04/17 05:55 - Plan (1) Rhabdomyolysis Status: Acute Qualifiers: Rhabdomyolysis type: traumatic Encounter type: initial encounter Qualified Code(s): T79.6XXA - Traumatic ischemia of muscle, initial encounter Plan: NORMAL SALINE AT 125ML/HR, CONTINUE TO MONITOR (2) Abnormal cardiac enzyme level Status: Acute Plan: obtain cardiac enzymes daily, training professional, continue to monitor (3) Seizure Status: Acute Plan: continue dilantin 300mg po HS, continue tegretol, continue to monitor (4) Upper respiratory infection Status: Acute Qualifiers: URI type: unspecified URI Qualified Code(s): J06.9 - Acute upper respiratory infection, unspecified Plan: ROCEPHIN 1GM IV DAILY, CONTINUE TO MONITOR (5) Hyperlipidemia Status: Acute Qualifiers: Hyperlipidemia type: mixed hyperlipidemia Qualified Code(s): E78.2 - Mixed hyperlipidemia Plan: CRESTOR 5MG PO HS, CONTINUE TO MONITOR
[2017-10-06] MEDS ORDERED: COLACE CAP 100 MG PO ONE (13:54)
[2017-10-06] MEDS ORDERED: ULTRAM PO PRN (19:08)
[2017-10-06] MEDS ORDERED: TYLENOL 325 MG TAB PO PRN (19:08)
[2017-10-06] MEDS ORDERED: NITROSTAT SL PRN (19:08)
[2017-10-06] MEDS: MIRALAX POWDER (1 DOSE 17GM) PO SCH (21:20)
[2017-10-06] MEDS: COLACE CAP 100 MG PO SCH (21:23)
[2017-10-06] MEDS: CRESTOR TAB 10 MG PO SCH (21:23)
[2017-10-06] MEDS: DILANTIN CAP 100 MG EXT REL PO SCH (21:24)
[2017-10-07 05:46] LABS: BASOPHILS % (AUTO) 0.4 % (0.2-1.0); EOSINOPHILS # (AUTO) 0.1 x10^3/uL (0.0-0.2); EOSINOPHILS % (AUTO) 2.1 % (0.9-2.9); HEMATOCRIT 33.1 % (42.0-54.0); HEMOGLOBIN 11.5 g/dL (13.5-18.0); LYMPHOCYTES # (AUTO) 1.6 X10^3/uL (1.3-2.9); MEAN CORPUSCULAR HEMOGLOBIN 34.1 pg (27.0-34.0); MEAN CORPUSCULAR HGB CONC 34.6 g/dL (33.0-35.0); MEAN CORPUSCULAR VOLUME 98.4 fL (80.0-100.0); MEAN PLATELET VOLUME 8.9 fL (7.4-11.0); MONOCYTES # (AUTO) 0.7 x10^3/uL (0.3-0.8); MONOCYTES % (AUTO) 13.6 % (0.0-13.0); NEUTROPHILS % (AUTO) 53.9 % (42.0-75.0); PLATELET COUNT 112 X10^3/uL (150.0-450.0); RED BLOOD COUNT 3.36 X10^6/uL (4.7-6.0); RED CELL DISTRIBUTION WIDTH 12.6 % (11.6-16.5); WHITE BLOOD COUNT 5.5 X10^3/uL (3.6-10.0)
[2017-10-07 06:24] LABS: ALANINE AMINOTRANSFERASE 46 Units/L (12-78); ALBUMIN 2.4 g/dL (3.4-5.0); ALKALINE PHOSPHATASE 94 Units/L (46-116); ASPARTATE AMINO TRANSFERASE 48 Units/L (15-37); BLOOD UREA NITROGEN 8 mg/dL (7-18); CALCIUM 7.9 mg/dL (8.5-10.1); CHLORIDE 104 mmol/L (98-107); CKMB % 0.3 % (<4); COR CA(FOR HYPOALB) 9.2 mg/dL (8.5-10.1); CREATINE KINASE 566 Units/L (39-308); CREATINE KINASE MB 1.7 ng/mL (0-4.0); CREATININE 0.59 mg/dL (0.70-1.30); SODIUM 139 mmol/L (136-145); TOTAL PROTEIN 5.8 g/dL (6.4-8.2); TROPONIN I 0.16 ng/mL (0-1.5); eGFR BLACK RACES > 60 (>60); eGFR NON BLACK RACES > 60 (>60)
[2017-10-07] MEDS: NITRO-BID OINT 2% Multi-Dose tube TD SCH ×4 (07:18→20:43)
[2017-10-07] MEDS: TAB-A-VITE PO SCH (10:05)
[2017-10-07] MEDS: VITAMIN C PO SCH ×2 (10:05→20:41)
[2017-10-07] MEDS: INDERAL TAB 10 MG PO SCH ×2 (10:06→20:41)
[2017-10-07] MEDS: PEPCID TAB 20 MG PO SCH ×2 (10:06→20:41)
[2017-10-07] MEDS: HEMOCYTE-PLUS PO SCH (10:06)
[2017-10-07] MEDS: ROCEPHIN VIAL 1 GM 1 GM in NS 100 ML IV + SPIKE MINIBAG* 100 ML IV SCH (10:10)
[2017-10-07] MEDS: NICOTINE PATCH TD SCH (10:11)
[2017-10-07] MEDS: CHECK PATCH XX SCH ×2 (10:16→20:36)
[2017-10-07] MEDS: MILK OF MAGNESIA PO SCH ×4 (10:19→20:38)
[2017-10-07] MEDS: NS 1000 ML 1,000 ML IV SCH (15:41)
[2017-10-07] MEDS: COLACE CAP 100 MG PO SCH (20:37)
[2017-10-07] MEDS: CRESTOR TAB 10 MG PO SCH (20:38)
[2017-10-07] MEDS: DILANTIN CAP 100 MG EXT REL PO SCH (20:40)
[2017-10-07] MEDS: MIRALAX POWDER (1 DOSE 17GM) PO SCH (20:42)
[2017-10-08 05:50] LABS: ALANINE AMINOTRANSFERASE 40 Units/L (12-78); ALBUMIN 2.5 g/dL (3.4-5.0); ALKALINE PHOSPHATASE 104 Units/L (46-116); ASPARTATE AMINO TRANSFERASE 37 Units/L (15-37); BLOOD UREA NITROGEN 8 mg/dL (7-18); CARBON DIOXIDE 27.3 mmol/L (21-32); CHLORIDE 102 mmol/L (98-107); CKMB % 0.3 % (<4); COR CA(FOR HYPOALB) 9.2 mg/dL (8.5-10.1); CREATINE KINASE 319 Units/L (39-308); CREATININE 0.62 mg/dL (0.70-1.30); SODIUM 137 mmol/L (136-145); TOTAL PROTEIN 6.1 g/dL (6.4-8.2); TROPONIN I 0.08 ng/mL (0-1.5); eGFR BLACK RACES > 60 (>60); eGFR NON BLACK RACES > 60 (>60)
[2017-10-08 05:56] LABS: BASOPHILS % (AUTO) 0.2 % (0.2-1.0); EOSINOPHILS # (AUTO) 0.1 x10^3/uL (0.0-0.2); EOSINOPHILS % (AUTO) 1.8 % (0.9-2.9); HEMATOCRIT 33.6 % (42.0-54.0); HEMOGLOBIN 11.8 g/dL (13.5-18.0); LYMPHOCYTES % (AUTO) 26.9 % (21.0-51.0); MEAN CORPUSCULAR HEMOGLOBIN 34.4 pg (27.0-34.0); MEAN CORPUSCULAR HGB CONC 35.2 g/dL (33.0-35.0); MEAN CORPUSCULAR VOLUME 97.7 fL (80.0-100.0); MEAN PLATELET VOLUME 8.9 fL (7.4-11.0); MONOCYTES # (AUTO) 0.9 x10^3/uL (0.3-0.8); MONOCYTES % (AUTO) 12.8 % (0.0-13.0); NEUTROPHILS # (AUTO) 4.3 x10^3/uL (2.2-4.8); NEUTROPHILS % (AUTO) 58.3 % (42.0-75.0); PLATELET COUNT 135 X10^3/uL (150.0-450.0); RED BLOOD COUNT 3.44 X10^6/uL (4.7-6.0); RED CELL DISTRIBUTION WIDTH 12.8 % (11.6-16.5); WHITE BLOOD COUNT 7.4 X10^3/uL (3.6-10.0)
[2017-10-08] MEDS: NS 1000 ML 1,000 ML IV SCH ×2 (07:20→17:19)
[2017-10-08] MEDS: NITRO-BID OINT 2% Multi-Dose tube TD SCH ×3 (07:20→14:24)
[2017-10-08] MEDS: HEMOCYTE-PLUS PO SCH (08:05)
[2017-10-08] MEDS: CHECK PATCH XX SCH (08:05)
[2017-10-08] MEDS: INDERAL TAB 10 MG PO SCH (08:05)
[2017-10-08] MEDS: TAB-A-VITE PO SCH (08:06)
[2017-10-08] MEDS: NICOTINE PATCH TD SCH (08:06)
[2017-10-08] MEDS: PEPCID TAB 20 MG PO SCH (08:06)
[2017-10-08] MEDS: ROCEPHIN VIAL 1 GM 1 GM in NS 100 ML IV + SPIKE MINIBAG* 100 ML IV SCH (08:06)
[2017-10-08] MEDS: MILK OF MAGNESIA PO SCH ×3 (08:06→16:15)
[2017-10-08] MEDS: VITAMIN C PO SCH (08:07)
--- NOTE | 2017-10-08 15:10 | PCM.PROG ---
Progress Note - Progress Note for Day of Date: 10/06/17 - Subjective Subjective: IS BEING TREATED FOR RHABDOMYOLYSIS AND SEIZURE ACTIVITY. TODAY, HE IS ALERT AND ORIENTED, LYING IN BED ON MORNING ROUNDS. HE CONTINUES WITH COMPLAINTS OF WEAKNESS AND PAIN IN LEGS. HE ALSO CONTINUES WITH COMPLAINTS OF COUGH AND CONGESTION. ON EXAMINATION, HE IS NOTED WITH A THIN POST NASAL DRIP. HEART IS REGULAR IN RATE AND RHYTHM. BILATERAL LUNGS CONTINUE WITH SCATTERED WHEEZING. HE CONTINUES WITH PERSISTENT COUGH. ABDOMEN IS FLAT, SOFT, AND NON-TENDER WITH HYPOACTIVE BOWEL SOUNDS NOTED IN ALL QUADRANTS. THERE IS WEAKNESS NOTED TO ALL EXTREMITIES. HIS VITALS THIS MORNING ARE 98.9-89-21-93% -111/56. WE OBTAINED LABS THIS MORNING. ABNORMAL LAB VALUES INCLUDE THE FOLLOWING: RBC 3.54, HGB 12.2, HCT 35.1, SODIUM 134, CREATININE 0.49, CALCIUM 7.9, AST 89, CREATINE KINASE DECREASED FROM 3,225 TO SLIGHTLY GREATHER THAN 1, 000, TOTAL PROTEIN 5.9, ALBUMIN 2.6. PHYSICAL THERAPY EVALUATED PATIENT YESTERDAY AND FEEL THAT HE WILL BENEFIT FROM SKILLED THERAPY. TODAY, WE WILL START ROCEPHIN 1GM IV DAILY FOR RESPIRATORY SYMPTOMS AND DECREASE CRESTOR TO 5MG AT BEDTIME, THE HIGH DOSAGE MAY BE A CONTRIBUTING FACTORY TO THE RHABDOMYOLYSIS. OTHERWISE, WE WILL CONTINUE WITH AGGRESSIVE IV HYDRATION. WE PLAN TO FOLLOW UP WITH AM LABS AND CONTINUE TO MONITOR PATIENT. - Past Medical Family Social History Past Med/Fam/Surg Hx: No changes since H&P Allergies: Allergies donepezil [From Aricept] Allergy (Verified 10/03/17 20:57) Penicillins Allergy (Verified 10/03/17 20:57) potassium Allergy (Verified 10/03/17 20:57) potassium chloride Allergy (Verified 10/03/17 20:57) SURGICAL TAPE Allergy (Uncoded 10/03/17 20:57) - Review of Systems ROS: No change since H&P - Vital Signs and I&O's Vital Signs: Temperature 99.1 F Pulse Rate [Apical] 72 Pulse Rate 100 Respiratory Rate 20 Blood Pressure [Right Arm] 130/61 Blood Pressure [Left Arm] 94/55 Blood Pressure 127/59 O2 Sat by Pulse Oximetry 92 Intake and Output: Intake & Output 10/06/17 10/07/17 10/08/17 10/09/17 11:59 11:59 11:59 11:59 Intake Total 2581 1810 2605 250 Output Total 950 1700 1720 Balance 1631 110 885 250 - Physical Exam Oriented: Normal. negative: Time, Person, Place, Not Oriented, Unable to test, Other Eyes: Normal. negative: Blurred Vision, Diplopia, Discharge, Pain, Redness, Photophobia, Other Ear: Normal. negative: Right, Left, Swelling, Ecchymosis, Hemotypanum, Abrasion , Laceration Nose: Other (nasal congestion ) Throat: Normal Respiratory: Generalized, Wheezes Cardiovascular: Normal. negative: S3, S4, Murmur : Normal. negative: Dysuria, Hematuria, Frequency, Discharge, Testicular Pain , Bleeding, , Other Auscultation: Bowel Sounds: Normal. negative: Bruit, Absent, Increased, Decreased, High Pitched, Other Palpation: Normal Tenderness: Normal. negative: Rebound, Guarding, Rigidity Skin: Normal Musculoskeletal: Instability Psychiatric: Normal Mood Description: Calm Affect: Normal Speech Pattern: Clear, Appropriate - Laboratory and Diagnostics Result Diagrams: 10/08/17 04:50 10/08/17 04:50 Labs: Laboratory WBC 7.4 X10^3/uL (3.6-10.0) 10/08/17 04:50 RBC 3.44 X10^6/uL (4.7-6.0) L 10/08/17 04:50 Hgb 11.8 g/dL (13.5-18.0) L 10/08/17 04:50 Hct 33.6 % (42.0-54.0) L 10/08/17 04:50 MCV 97.7 fL (80.0-100.0) 10/08/17 04:50 MCH 34.4 pg (27.0-34.0) H 10/08/17 04:50 MCHC 35.2 g/dL (33.0-35.0) H 10/08/17 04:50 RDW 12.8 % (11.6-16.5) 10/08/17 04:50 Plt Count 135 X10^3/uL (150.0-450.0) L 10/08/17 04:50 MPV 8.9 fL (7.4-11.0) 10/08/17 04:50 Neut % 58.3 % (42.0-75.0) 10/08/17 04:50 Lymph % 26.9 % (21.0-51.0) 10/08/17 04:50 Bowie % 12.8 % (0.0-13.0) 10/08/17 04:50 Eos % 1.8 % (0.9-2.9) 10/08/17 04:50 Baso % 0.2 % (0.2-1.0) 10/08/17 04:50 Neut # 4.3 x10^3/uL (2.2-4.8) 10/08/17 04:50 Lymph # 2.0 X10^3/uL (1.3-2.9) 10/08/17 04:50 Bowie # 0.9 x10^3/uL (0.3-0.8) H 10/08/17 04:50 Eos # 0.1 x10^3/uL (0.0-0.2) 10/08/17 04:50 Baso # 0.0 X10^3/uL (0.0-0.1) 10/08/17 04:50 Absolute Nucleated RBC 0.0 /100WBC 10/08/17 04:50 INR Target Range - 10/04/17 05:55 INR 1.11 (0.8-1.3) 10/04/17 05:55 PTT 46.2 SECONDS (22.9-36.5) H 10/04/17 05:55 PTT Comment - 10/04/17 05:55 Sodium 137 mmol/L (136-145) 10/08/17 04:50 Corrected Sodium TNP 10/08/17 04:50 Potassium 3.8 mmol/L (3.5-5.1) 10/08/17 04:50 Chloride 102 mmol/L (98-107) 10/08/17 04:50 Carbon Dioxide 27.3 mmol/L (21-32) 10/08/17 04:50 BUN 8 mg/dL (7-18) 10/08/17 04:50 Creatinine 0.62 mg/dL (0.70-1.30) L 10/08/17 04:50 Est GFR (MDRD) Af Amer > 60 (>60) 10/08/17 04:50 Est GFR (MDRD) Non-Af > 60 (>60) 10/08/17 04:50 Glucose 93 mg/dL (65-99) 10/08/17 04:50 Calcium 8.0 mg/dL (8.5-10.1) L 10/08/17 04:50 Corrected Calcium 9.2 mg/dL (8.5-10.1) 10/08/17 04:50 Magnesium 1.8 mg/dL (1.7-2.9) 10/04/17 05:55 Total Bilirubin 0.30 mg/dL (0.2-1.0) 10/08/17 04:50 AST 37 Units/L (15-37) 10/08/17 04:50 ALT 40 Units/L (12-78) 10/08/17 04:50 Alkaline Phosphatase 104 Units/L (46-116) 10/08/17 04:50 Creatine Kinase 319 Units/L (39-308) H 10/08/17 04:50 CK-MB (CK-2) 1.0 ng/mL (0-4.0) 10/08/17 04:50 CK/CKMB % Calc 0.3 % (<4) 10/08/17 04:50 Troponin I 0.08 ng/mL (0-1.5) 10/08/17 04:50 Total Protein 6.1 g/dL (6.4-8.2) L 10/08/17 04:50 Albumin 2.5 g/dL (3.4-5.0) L 10/08/17 04:50 Globulin 3.6 g/dL (2.5-4.5) 10/08/17 04:50 Albumin/Globulin Ratio 0.7 Ratio (1.1-2.1) L 10/08/17 04:50 Triglycerides 74 mg/dL (0-150) 10/04/17 05:55 Cholesterol 131 mg/dL (0-200) 10/04/17 05:55 LDL Cholesterol, Calc 79 mg/dL (0-100) 10/04/17 05:55 HDL Cholesterol 37 mg/dL (40-60) L 10/04/17 05:55 Cholesterol/HDL Ratio 3.5 (0.0-5.0) 10/04/17 05:55 Specimen Type Clean catch urine 10/03/17 22:25 Urine Color Yellow (YELLOW) 10/03/17 22:25 Urine Appearance Clear (CLEAR) 10/03/17 22: Urine pH 5.0 (5.0 - 8.0) 10/03/17 22:25 Ur Specific [place] 1.020 (1.000-1.030) 10/03/17 22:25 Urine Protein 2+ (NEGATIVE) 10/03/17 22: Urine Glucose (UA) Negative (NEGATIVE) 10/03/17 22: Urine Ketones 1+ (NEGATIVE) 10/03/17 22:25 Urine Occult Blood 4+ (NEGATIVE) 10/03/17 22:25 Urine Nitrite Negative (NEGATIVE) 10/03/17 22: Urine Bilirubin Negative (NEGATIVE) 10/03/17 22: Urine Urobilinogen Normal (NORMAL) 10/03/17 22:25 Ur Leukocyte Esterase 1+ (NEGATIVE) 10/03/17 22: Urine RBC 4-8 /HPF (NEGATIVE) 10/03/17 22:25 Urine WBC 0-3 /HPF (NEGATIVE) 10/03/17 22:25 Ur Squamous Epith Cells Few /HPF (NEGATIVE) 10/03/17 22:25 Urine Bacteria Trace /HPF (NEGATIVE) 10/03/17 22:25 Urine Mucus Many /HPF (NEGATIVE) 10/03/17 22:25 Ur Culture Indicated? No/not indicated 10/03/17 22: Phenytoin 16.0 ug/mL (10-20) 10/04/17 05:55 - Plan (1) Rhabdomyolysis Status: Acute Qualifiers: Rhabdomyolysis type: traumatic Encounter type: initial encounter Qualified Code(s): T79.6XXA - Traumatic ischemia of muscle, initial encounter Plan: NORMAL SALINE AT 125ML/HR, CONTINUE TO MONITOR (2) Abnormal cardiac enzyme level Status: Acute Plan: obtain cardiac enzymes daily, paid internship, continue to monitor (3) Seizure Status: Acute Plan: continue dilantin 300mg po HS, continue tegretol, continue to monitor (4) Upper respiratory infection Status: Acute Qualifiers: URI type: unspecified URI Qualified Code(s): J06.9 - Acute upper respiratory infection, unspecified Plan: ROCEPHIN 1GM IV DAILY, CONTINUE TO MONITOR (5) Hyperlipidemia Status: Acute Qualifiers: Hyperlipidemia type: mixed hyperlipidemia Qualified Code(s): E78.2 - Mixed hyperlipidemia Plan: CRESTOR 5MG PO HS, CONTINUE TO MONITOR
--- NOTE | 2017-10-08 15:35 | PCM.PROG ---
Progress Note - Progress Note for Day of Date: 10/07/17 - Subjective Subjective: IS BEING TREATED FOR RHABDOMYOLYSIS AND SEIZURE ACTIVITY. THERE HAS BEEN NO SEIZURE ACTIVITY SINCE ADMISSION. TODAY, HE IS ALERT AND ORIENTED, SITTING UP IN BED ON MORNING ROUNDS. HE CONTINUES WITH COMPLAINTS OF WEAKNES, BUT REPORTS IMPROVEMENT SINCE YESTERDAY. RESPIRATORY SYMPTOMS HAVE IMPROVED. STAFF REPORTS THAT PATIENT CONTINUES TO BE NON- COMPLIANT WITH SEVERAL MEDICATIONS. HE IS SOMEWHAT MORE COMPLIANT WITH PHYSICAL THERPY, BUT ONLY WHEN CONVENIENT FOR HIMSELF. ON EXAMINATION, HEART IS REGULAR IN RATE AND RHYTHM. BILATERAL LUNG SOUNDS ARE DIMINISHED. ABDOMEN IS FLAT, SOFT , AND NON-TENDER WITH NORMAL BOWEL SOUNDS NOTED IN ALL QUADRANTS. WEAKNESS TO LOWER EXTREMITIES HAVE SLIGHTLY IMPROVED SINCE YESTERDAY. PHYSICAL THERAPY REPORTS THAT PATIENT CONTINUES TO BE UNSTEADY WHEN TRANSFERRING. HIS VITALS THIS MORNING ARE 98.3-94-22-94%-112/51. WE OBTAINED LABS THIS MORNING. ABNORMAL LAB VALUES INCLUDE THE FOLLOWING: RBC 336, HGB 11.5, HCT 33.1, CREATININE 0.59, CALCIUM 7.9, AST 48, CREATINE KINASE 566. THIS IS A DECREASE EFROM CREATINE KINASE OF 971 YESTERDAY. TODAY, WE WILL CONTINUE WITH AGGRESSIVE IV HYDRATION AND PHYSICAL THERAPY. FAMILY HAS A BED WAITING AT AN ASSISTED [facility]ARE F[facility]ILITY, HOWEVER, BED WILL NOT BE READY UNTIL THE BEGINNING OF NEXT WEEK. WE PLAN TO FOLLOW UP WITH AM LABS AND CONTINUE TO MONITOR PATIENT. - Past Medical Family Social History Past Med/Fam/Surg Hx: No changes since H&P Allergies: Allergies donepezil [From Aricept] Allergy (Verified 10/03/17 20:57) Penicillins Allergy (Verified 10/03/17 20:57) potassium Allergy (Verified 10/03/17 20:57) potassium chloride Allergy (Verified 10/03/17 20:57) SURGICAL TAPE Allergy (Uncoded 10/03/17 20:57) - Review of Systems ROS: No change since H&P - Vital Signs and I&O's Vital Signs: Temperature 99.1 F Pulse Rate [Apical] 72 Pulse Rate 100 Respiratory Rate 20 Blood Pressure [Right Arm] 130/61 Blood Pressure [Left Arm] 94/55 Blood Pressure 127/59 O2 Sat by Pulse Oximetry 92 Intake and Output: Intake & Output 10/06/17 10/07/17 10/08/17 10/09/17 11:59 11:59 11:59 11:59 Intake Total 2581 1810 2605 250 Output Total 950 1700 1720 Balance 1631 110 885 250 - Physical Exam Oriented: Normal. negative: Time, Person, Place, Not Oriented, Unable to test, Other Eyes: Normal. negative: Blurred Vision, Diplopia, Discharge, Pain, Redness, Photophobia, Other Ear: Normal. negative: Right, Left, Swelling, Ecchymosis, Hemotypanum, Abrasion , Laceration Nose: Other (nasal congestion ) Throat: Normal Respiratory: Generalized, Diminished Cardiovascular: Normal. negative: S3, S4, Murmur : Normal. negative: Dysuria, Hematuria, Frequency, Discharge, Testicular Pain , Bleeding, , Other Auscultation: Bowel Sounds: Normal. negative: Bruit, Absent, Increased, Decreased, High Pitched, Other Palpation: Normal Tenderness: Normal. negative: Rebound, Guarding, Rigidity Skin: Normal Musculoskeletal: Instability Psychiatric: Normal Mood Description: Calm Affect: Normal Speech Pattern: Clear, Appropriate - Laboratory and Diagnostics Result Diagrams: 10/08/17 04:50 10/08/17 04:50 Labs: Laboratory WBC 7.4 X10^3/uL (3.6-10.0) 10/08/17 04:50 RBC 3.44 X10^6/uL (4.7-6.0) L 10/08/17 04:50 Hgb 11.8 g/dL (13.5-18.0) L 10/08/17 04:50 Hct 33.6 % (42.0-54.0) L 10/08/17 04:50 MCV 97.7 fL (80.0-100.0) 10/08/17 04:50 MCH 34.4 pg (27.0-34.0) H 10/08/17 04:50 MCHC 35.2 g/dL (33.0-35.0) H 10/08/17 04:50 RDW 12.8 % (11.6-16.5) 10/08/17 04:50 Plt Count 135 X10^3/uL (150.0-450.0) L 10/08/17 04:50 MPV 8.9 fL (7.4-11.0) 10/08/17 04:50 Neut % 58.3 % (42.0-75.0) 10/08/17 04:50 Lymph % 26.9 % (21.0-51.0) 10/08/17 04:50 [place] % 12.8 % (0.0-13.0) 10/08/17 04:50 Eos % 1.8 % (0.9-2.9) 10/08/17 04:50 Baso % 0.2 % (0.2-1.0) 10/08/17 04:50 Neut # 4.3 x10^3/uL (2.2-4.8) 10/08/17 04:50 Lymph # 2.0 X10^3/uL (1.3-2.9) 10/08/17 04:50 [place] # 0.9 x10^3/uL (0.3-0.8) H 10/08/17 04:50 Eos # 0.1 x10^3/uL (0.0-0.2) 10/08/17 04:50 Baso # 0.0 X10^3/uL (0.0-0.1) 10/08/17 04:50 Absolute Nucleated RBC 0.0 /100WBC 10/08/17 04:50 INR Target Range - 10/04/17 05:55 INR 1.11 (0.8-1.3) 10/04/17 05:55 PTT 46.2 SECONDS (22.9-36.5) H 10/04/17 05:55 PTT Comment - 10/04/17 05:55 Sodium 137 mmol/L (136-145) 10/08/17 04:50 Corrected Sodium TNP 10/08/17 04:50 Potassium 3.8 mmol/L (3.5-5.1) 10/08/17 04:50 Chloride 102 mmol/L (98-107) 10/08/17 04:50 Carbon Dioxide 27.3 mmol/L (21-32) 10/08/17 04:50 BUN 8 mg/dL (7-18) 10/08/17 04:50 Creatinine 0.62 mg/dL (0.70-1.30) L 10/08/17 04:50 Est GFR (MDRD) Af Amer > 60 (>60) 10/08/17 04:50 Est GFR (MDRD) Non-Af > 60 (>60) 10/08/17 04:50 Glucose 93 mg/dL (65-99) 10/08/17 04:50 Calcium 8.0 mg/dL (8.5-10.1) L 10/08/17 04:50 Corrected Calcium 9.2 mg/dL (8.5-10.1) 10/08/17 04:50 Magnesium 1.8 mg/dL (1.7-2.9) 10/04/17 05:55 Total Bilirubin 0.30 mg/dL (0.2-1.0) 10/08/17 04:50 AST 37 Units/L (15-37) 10/08/17 04:50 ALT 40 Units/L (12-78) 10/08/17 04:50 Alkaline Phosphatase 104 Units/L (46-116) 10/08/17 04:50 Creatine Kinase 319 Units/L (39-308) H 10/08/17 04:50 CK-MB (CK-2) 1.0 ng/mL (0-4.0) 10/08/17 04:50 CK/CKMB % Calc 0.3 % (<4) 10/08/17 04:50 Troponin I 0.08 ng/mL (0-1.5) 10/08/17 04:50 Total Protein 6.1 g/dL (6.4-8.2) L 10/08/17 04:50 Albumin 2.5 g/dL (3.4-5.0) L 10/08/17 04:50 Globulin 3.6 g/dL (2.5-4.5) 10/08/17 04:50 Albumin/Globulin Ratio 0.7 Ratio (1.1-2.1) L 10/08/17 04:50 Triglycerides 74 mg/dL (0-150) 10/04/17 05:55 Cholesterol 131 mg/dL (0-200) 10/04/17 05:55 LDL Cholesterol, Calc 79 mg/dL (0-100) 10/04/17 05:55 HDL Cholesterol 37 mg/dL (40-60) L 10/04/17 05:55 Cholesterol/HDL Ratio 3.5 (0.0-5.0) 10/04/17 05:55 Specimen Type Clean catch urine 10/03/17 22:25 Urine Color Yellow (YELLOW) 10/03/17 22:25 Urine Appearance Clear (CLEAR) 10/03/17 22:25 Urine pH 5.0 (5.0 - 8.0) 10/03/17 22:25 Ur Specific [place] 1.020 (1.000-1.030) 10/03/17 22:25 Urine Protein 2+ (NEGATIVE) 10/03/17 22:25 Urine Glucose (UA) Negative (NEGATIVE) 10/03/17 22: Urine Ketones 1+ (NEGATIVE) 10/03/17 22:25 Urine Occult Blood 4+ (NEGATIVE) 10/03/17 22:25 Urine Nitrite Negative (NEGATIVE) 10/03/17 22: Urine Bilirubin Negative (NEGATIVE) 10/03/17 22: Urine Urobilinogen Normal (NORMAL) 10/03/17 22:25 Ur Leukocyte Esterase 1+ (NEGATIVE) 10/03/17 22:25 Urine RBC 4-8 /HPF (NEGATIVE) 10/03/17 22:25 Urine WBC 0-3 /HPF (NEGATIVE) 10/03/17 22:25 Ur Squamous Epith Cells Few /HPF (NEGATIVE) 10/03/17 22:25 Urine Bacteria Trace /HPF (NEGATIVE) 10/03/17 22:25 Urine Mucus Many /HPF (NEGATIVE) 10/03/17 22:25 Ur Culture Indicated? No/not indicated 10/03/17 22: Phenytoin 16.0 ug/mL (10-20) 10/04/17 05:55 - Plan (1) Rhabdomyolysis Status: Acute Qualifiers: Rhabdomyolysis type: traumatic Encounter type: initial encounter Qualified Code(s): T79.6XXA - Traumatic ischemia of muscle, initial encounter Plan: NORMAL SALINE AT 125ML/HR, CONTINUE TO MONITOR (2) Abnormal cardiac enzyme level Status: Acute Plan: obtain cardiac enzymes daily, patient monitor, continue to monitor (3) Seizure Status: Acute Plan: continue dilantin 300mg po HS, continue tegretol, continue to monitor (4) Upper respiratory infection Status: Acute Qualifiers: URI type: unspecified URI Qualified Code(s): J06.9 - Acute upper respiratory infection, unspecified Plan: ROCEPHIN 1GM IV DAILY, CONTINUE TO MONITOR (5) Hyperlipidemia Status: Acute Qualifiers: Hyperlipidemia type: mixed hyperlipidemia Qualified Code(s): E78.2 - Mixed hyperlipidemia Plan: CRESTOR 5MG PO HS, CONTINUE TO MONITOR
--- NOTE | 2017-10-08 15:45 | PCM.PROG ---
Progress Note - Progress Note for Day of Date: 10/08/17 - Subjective Subjective: IS BEING TREATED FOR RHABDOMYOLYSIS AND SEIZURE ACTIVITY. THERE HAS BEEN NO SEIZURE ACTIVITY SINCE ADMISSION. TODAY, HE IS ALERT AND ORIENTED, SITTING UP IN BED ON MORNING ROUNDS. HE APPEARS TO BE AGITATED AND REPORTS WANTING TO GO HOME. STAFF REPORTS THAT PATIENT HAS BEEN AGITATED THROUGHOUT THE NIGHT AND VERBALLY ABUSIVE TOWARDS STAFF. HE REPORTS THAT WEAKNESS HAS IMPROVED SINCE OUR VISIT YESTERDAY. HE REPORTS FEELING WELL. STAFF REPORTS THAT PATIENT CONTINUES TO BE NON-COMPLIANT WITH SEVERAL MEDICATIONS AND PHYSICAL THERAPY. THEY STATE THAT HE LIES IN BED AND REFUSED TO GET UP IN CHAIR. PHYSICAL THERAPY REPORTS THAT PATIENT REFUSES THERAPY THIS MORNING. ON EXAMINATION, HEART IS REGULAR IN RATE AND RHYTHM. BILATERAL LUNG SOUNDS ARE DIMINISHED. ABDOMEN IS FLAT, SOFT, AND NON-TENDER WITH NORMAL BOWEL SOUNDS NOTED IN ALL QUADRANTS. WEAKNESS TO LOWER EXTREMITIES HAS IMPROVED SINCE ADMISSION. HIS VITALS THIS MORNING ARE 98.1, 92, 20, 95%, 117/57. WE OBTAINED LABS THIS MORNING. ABNORMAL LAB VALUES INCLUDE THE FOLLOWING: RBC 3.44, HGB 11.8 , HCT 33.6, CREATININE 0.62, CALCIUM 8.0, TOTAL PROTEIN 6.1, ALBUMIN 2.5. RHABDOMYOLYSIS HAS RESOLVED AND CREATINE HAS RETURNED TO NORMAL. FAMILY REQUEST THAT PATIENT BE TRANSFERRED TO THE [facility]AVIOURAL UNIT FOR FURTHER TREATMENT AND EVALUATION DUE TO AGITATION AND AGGRESSIVE, NON-COMPLIANT BEHAVIOUR. WE ARE IN AGREEMENT WITH PLAN. WE WILL CONSULT WITH THEM. HE IS MEDICALLY CLEAR AND STABLE FOR TRANSFER. WE PLAN TO START ZYPREXA 2.5MG BID FOR PATIENT AT THIS TIME DUE TO AGITATION. WE WILL CONTINUE TO MONITOR PATIENT. - Past Medical Family Social History Past Med/Fam/Surg Hx: No changes since H&P Allergies: Allergies donepezil [From Aricept] Allergy (Verified 10/03/17 20:57) Penicillins Allergy (Verified 10/03/17 20:57) potassium Allergy (Verified 10/03/17 20:57) potassium chloride Allergy (Verified 10/03/17 20:57) SURGICAL TAPE Allergy (Uncoded 10/03/17 20:57) - Review of Systems ROS: No change since H&P - Vital Signs and I&O's Vital Signs: Temperature 99.1 F Pulse Rate [Apical] 72 Pulse Rate 100 Respiratory Rate 20 Blood Pressure [Right Arm] 130/61 Blood Pressure [Left Arm] 94/55 Blood Pressure 127/59 O2 Sat by Pulse Oximetry 92 Intake and Output: Intake & Output 10/06/17 10/07/17 10/08/17 10/09/17 11:59 11:59 11:59 11:59 Intake Total 2581 1810 2605 250 Output Total 950 1700 1720 Balance 1631 110 885 250 - Physical Exam Oriented: Normal. negative: Time, Person, Place, Not Oriented, Unable to test, Other Eyes: Normal. negative: Blurred Vision, Diplopia, Discharge, Pain, Redness, Photophobia, Other Ear: Normal. negative: Right, Left, Swelling, Ecchymosis, Hemotypanum, Abrasion , Laceration Nose: Other (nasal congestion ) Throat: Normal Respiratory: Generalized, Diminished Cardiovascular: Normal. negative: S3, S4, Murmur : Normal. negative: Dysuria, Hematuria, Frequency, Discharge, Testicular Pain , Bleeding, , Other Auscultation: Bowel Sounds: Normal. negative: Bruit, Absent, Increased, Decreased, High Pitched, Other Palpation: Normal Tenderness: Normal. negative: Rebound, Guarding, Rigidity Skin: Normal Musculoskeletal: Instability Psychiatric: Normal Mood Description: Calm Affect: Normal Speech Pattern: Clear, Appropriate - Laboratory and Diagnostics Result Diagrams: 10/08/17 04:50 10/08/17 04:50 Labs: Laboratory WBC 7.4 X10^3/uL (3.6-10.0) 10/08/17 04:50 RBC 3.44 X10^6/uL (4.7-6.0) L 10/08/17 04:50 Hgb 11.8 g/dL (13.5-18.0) L 10/08/17 04:50 Hct 33.6 % (42.0-54.0) L 10/08/17 04:50 MCV 97.7 fL (80.0-100.0) 10/08/17 04:50 MCH 34.4 pg (27.0-34.0) H 10/08/17 04:50 MCHC 35.2 g/dL (33.0-35.0) H 10/08/17 04:50 RDW 12.8 % (11.6-16.5) 10/08/17 04:50 Plt Count 135 X10^3/uL (150.0-450.0) L 10/08/17 04:50 MPV 8.9 fL (7.4-11.0) 10/08/17 04:50 Neut % 58.3 % (42.0-75.0) 10/08/17 04:50 Lymph % 26.9 % (21.0-51.0) 10/08/17 04:50 [place] % 12.8 % (0.0-13.0) 10/08/17 04:50 Eos % 1.8 % (0.9-2.9) 10/08/17 04:50 Baso % 0.2 % (0.2-1.0) 10/08/17 04:50 Neut # 4.3 x10^3/uL (2.2-4.8) 10/08/17 04:50 Lymph # 2.0 X10^3/uL (1.3-2.9) 10/08/17 04:50 [place] # 0.9 x10^3/uL (0.3-0.8) H 10/08/17 04:50 Eos # 0.1 x10^3/uL (0.0-0.2) 10/08/17 04:50 Baso # 0.0 X10^3/uL (0.0-0.1) 10/08/17 04:50 Absolute Nucleated RBC 0.0 /100WBC 10/08/17 04:50 INR Target Range - 10/04/17 05:55 INR 1.11 (0.8-1.3) 10/04/17 05:55 PTT 46.2 SECONDS (22.9-36.5) H 10/04/17 05:55 PTT Comment - 10/04/17 05:55 Sodium 137 mmol/L (136-145) 10/08/17 04:50 Corrected Sodium TNP 10/08/17 04:50 Potassium 3.8 mmol/L (3.5-5.1) 10/08/17 04:50 Chloride 102 mmol/L (98-107) 10/08/17 04:50 Carbon Dioxide 27.3 mmol/L (21-32) 10/08/17 04:50 BUN 8 mg/dL (7-18) 10/08/17 04:50 Creatinine 0.62 mg/dL (0.70-1.30) L 10/08/17 04:50 Est GFR (MDRD) Af Amer > 60 (>60) 10/08/17 04:50 Est GFR (MDRD) Non-Af > 60 (>60) 10/08/17 04:50 Glucose 93 mg/dL (65-99) 10/08/17 04:50 Calcium 8.0 mg/dL (8.5-10.1) L 10/08/17 04:50 Corrected Calcium 9.2 mg/dL (8.5-10.1) 10/08/17 04:50 Magnesium 1.8 mg/dL (1.7-2.9) 10/04/17 05:55 Total Bilirubin 0.30 mg/dL (0.2-1.0) 10/08/17 04:50 AST 37 Units/L (15-37) 10/08/17 04:50 ALT 40 Units/L (12-78) 10/08/17 04:50 Alkaline Phosphatase 104 Units/L (46-116) 10/08/17 04:50 Creatine Kinase 319 Units/L (39-308) H 10/08/17 04:50 CK-MB (CK-2) 1.0 ng/mL (0-4.0) 10/08/17 04:50 CK/CKMB % Calc 0.3 % (<4) 10/08/17 04:50 Troponin I 0.08 ng/mL (0-1.5) 10/08/17 04:50 Total Protein 6.1 g/dL (6.4-8.2) L 10/08/17 04:50 Albumin 2.5 g/dL (3.4-5.0) L 10/08/17 04:50 Globulin 3.6 g/dL (2.5-4.5) 10/08/17 04:50 Albumin/Globulin Ratio 0.7 Ratio (1.1-2.1) L 10/08/17 04:50 Triglycerides 74 mg/dL (0-150) 10/04/17 05:55 Cholesterol 131 mg/dL (0-200) 10/04/17 05:55 LDL Cholesterol, Calc 79 mg/dL (0-100) 10/04/17 05:55 HDL Cholesterol 37 mg/dL (40-60) L 10/04/17 05:55 Cholesterol/HDL Ratio 3.5 (0.0-5.0) 10/04/17 05:55 Specimen Type Clean catch urine 10/03/17 22:25 Urine Color Yellow (YELLOW) 10/03/17 22:25 Urine Appearance Clear (CLEAR) 10/03/17 22:25 Urine pH 5.0 (5.0 - 8.0) 10/03/17 22:25 Ur Specific [place] 1.020 (1.000-1.030) 10/03/17 22:25 Urine Protein 2+ (NEGATIVE) 10/03/17 22:25 Urine Glucose (UA) Negative (NEGATIVE) 10/03/17 22: Urine Ketones 1+ (NEGATIVE) 10/03/17 22: Urine Occult Blood 4+ (NEGATIVE) 10/03/17 22:25 Urine Nitrite Negative (NEGATIVE) 10/03/17 22:25 Urine Bilirubin Negative (NEGATIVE) 10/03/17 22:25 Urine Urobilinogen Normal (NORMAL) 10/03/17 22:25 Ur Leukocyte Esterase 1+ (NEGATIVE) 10/03/17 22:25 Urine RBC 4-8 /HPF (NEGATIVE) 10/03/17 22:25 Urine WBC 0-3 /HPF (NEGATIVE) 10/03/17 22:25 Ur Squamous Epith Cells Few /HPF (NEGATIVE) 10/03/17 22:25 Urine Bacteria Trace /HPF (NEGATIVE) 10/03/17 22:25 Urine Mucus Many /HPF (NEGATIVE) 10/03/17 22:25 Ur Culture Indicated? No/not indicated 10/03/17 22: Phenytoin 16.0 ug/mL (10-20) 10/04/17 05:55 - Plan (1) Rhabdomyolysis Status: Resolved Qualifiers: Rhabdomyolysis type: traumatic Encounter type: initial encounter Qualified Code(s): T79.6XXA - Traumatic ischemia of muscle, initial encounter Plan: NORMAL SALINE AT 125ML/HR, CONTINUE TO MONITOR (2) Seizure Status: Acute Plan: continue dilantin 300mg po HS, continue tegretol, continue to monitor (3) Upper respiratory infection Status: Acute Qualifiers: URI type: unspecified URI Qualified Code(s): J06.9 - Acute upper respiratory infection, unspecified Plan: OMNICEF 300MG PO BID, CONTINUE TO MONITOR (4) Hyperlipidemia Status: Acute Qualifiers: Hyperlipidemia type: mixed hyperlipidemia Qualified Code(s): E78.2 - Mixed hyperlipidemia Plan: CRESTOR 5MG PO HS, CONTINUE TO MONITOR
[2017-10-08 16:15] VITALS: BP 134/57
== END 2017-10-08 17:40 | DRG 558 ==
LOC: ER 15:05 → OBSVTOIN 20:33 → ICU 20:33 → MED/SURG 10-06 16:42
PROVIDERS: ADMIT Obstetrics & Gynecology Obstetrics; ATTEND Internal Medicine
DX: M62.82 Rhabdomyolysis (principal); G40.802 Other epilepsy, not intractable, without status epilepticus; R94.30 Abnormal result of cardiovascular function study, unspecified; R51 Headache; I10 Essential (primary) hypertension; R94.31 Abnormal electrocardiogram [ECG] [EKG]; J06.9 Acute upper respiratory infection, unspecified; E78.2 Mixed hyperlipidemia
CPT/HCPCS: 36415; 70450; 71046; 80053; 80061; 80185; 81001; 82550; 82553; 83735; 84484; 85025; 85610; 85730; 93005; 96365; 96374; 97535; 99284; A4222; S0028; S0078; J0696; J2550

== ENCOUNTER 2017-12-28 13:44 | Inpatient (IN) | payer OTHER, BC ==
[2017-12-28] MEDS ORDERED: NS 1000 ML 1,000 ML ONE (14:55)
[2017-12-28] MEDS ORDERED: PHARMACY CONSULT - VANCOMYCIN XX SCH (15:24)
[2017-12-28] MEDS: NS 1000 ML 1,000 ML IV SCH (15:37)
[2017-12-28 16:05] LABS: BASOPHILS % (AUTO) 0.3 % (0.2-1.0); HEMATOCRIT 31.2 % (42.0-54.0); HEMOGLOBIN 10.3 g/dL (13.5-18.0); LYMPHOCYTES # (AUTO) 1.8 X10^3/uL (1.3-2.9); LYMPHOCYTES % (AUTO) 12.8 % (21.0-51.0); MEAN CORPUSCULAR HEMOGLOBIN 31.9 pg (27.0-34.0); MEAN CORPUSCULAR HGB CONC 32.9 g/dL (33.0-35.0); MEAN CORPUSCULAR VOLUME 96.8 fL (80.0-100.0); MEAN PLATELET VOLUME 9.8 fL (7.4-11.0); MONOCYTES # (AUTO) 0.9 x10^3/uL (0.3-0.8); MONOCYTES % (AUTO) 6.5 % (0.0-13.0); NEUTROPHILS # (AUTO) 11.3 x10^3/uL (2.2-4.8); NEUTROPHILS % (AUTO) 80.4 % (42.0-75.0); PLATELET COUNT 185 X10^3/uL (150.0-450.0); RED BLOOD COUNT 3.23 X10^6/uL (4.7-6.0); RED CELL DISTRIBUTION WIDTH 13.5 % (11.6-16.5)
[2017-12-28 16:09] LABS: ALANINE AMINOTRANSFERASE 129 Units/L (12-78); ALBUMIN 1.7 g/dL (3.4-5.0); ALKALINE PHOSPHATASE 199 Units/L (46-116); ASPARTATE AMINO TRANSFERASE 251 Units/L (15-37); BLOOD UREA NITROGEN 35 mg/dL (7-18); CALCIUM 8.2 mg/dL (8.5-10.1); CARBON DIOXIDE 22.6 mmol/L (21-32); CHLORIDE 114 mmol/L (98-107); COR NA(FOR HYPERGLY) 149 mmol/L (136-145); CREATININE 1.14 mg/dL (0.70-1.30); SODIUM 149 mmol/L (136-145); TOTAL PROTEIN 6.9 g/dL (6.4-8.2); eGFR BLACK RACES > 60 (>60); eGFR NON BLACK RACES > 60 (>60)
[2017-12-28 16:56] VITALS: BMI 17.2
[2017-12-28] MEDS ORDERED: VANCOMYCIN 1 GM PREMIX (ADDVANTAGE) 250 ML IV SCH (18:00)
[2017-12-28] MEDS ORDERED: TYLENOL SUPP 650 MG PR PRN (21:37)
[2017-12-29] MEDS: NS 1000 ML 1,000 ML IV SCH (03:23)
[2017-12-29 06:06] LABS: BASOPHILS % (AUTO) 0.2 % (0.2-1.0); EOSINOPHILS % (AUTO) 0.1 % (0.9-2.9); HEMOGLOBIN 8.6 g/dL (13.5-18.0); LYMPHOCYTES # (AUTO) 1.5 X10^3/uL (1.3-2.9); LYMPHOCYTES % (AUTO) 11.4 % (21.0-51.0); MEAN CORPUSCULAR HGB CONC 33.3 g/dL (33.0-35.0); MEAN CORPUSCULAR VOLUME 96.1 fL (80.0-100.0); MEAN PLATELET VOLUME 9.8 fL (7.4-11.0); MONOCYTES # (AUTO) 0.8 x10^3/uL (0.3-0.8); MONOCYTES % (AUTO) 5.8 % (0.0-13.0); NEUTROPHILS # (AUTO) 11.2 x10^3/uL (2.2-4.8); NEUTROPHILS % (AUTO) 82.5 % (42.0-75.0); PLATELET COUNT 148 X10^3/uL (150.0-450.0); RED BLOOD COUNT 2.71 X10^6/uL (4.7-6.0); RED CELL DISTRIBUTION WIDTH 13.9 % (11.6-16.5); WHITE BLOOD COUNT 13.5 X10^3/uL (3.6-10.0)
[2017-12-29 06:18] LABS: ALANINE AMINOTRANSFERASE 117 Units/L (12-78); ALBUMIN 1.4 g/dL (3.4-5.0); ALKALINE PHOSPHATASE 183 Units/L (46-116); ASPARTATE AMINO TRANSFERASE 257 Units/L (15-37); BLOOD UREA NITROGEN 31 mg/dL (7-18); CALCIUM 7.8 mg/dL (8.5-10.1); CARBON DIOXIDE 20.6 mmol/L (21-32); COR CA(FOR HYPOALB) 9.9 mg/dL (8.5-10.1); CREATININE 1.01 mg/dL (0.70-1.30); TOTAL PROTEIN 6.1 g/dL (6.4-8.2); eGFR BLACK RACES > 60 (>60); eGFR NON BLACK RACES > 60 (>60)
[2017-12-29 06:26] LABS: SODIUM 152 mmol/L (136-145)
[2017-12-29 06:27] LABS: CHLORIDE 119 mmol/L (98-107)
[2017-12-29] MEDS ORDERED: VERSED 100 MG in NS 100 ML IV 80 ML IV PRN (09:35)
[2017-12-29] MEDS ORDERED: NS 1000 ML 1,000 ML IV SCH (10:11)
[2017-12-29] MEDS: MORPHINE SULFATE PCA 30 MG IVP SCH ×10 (10:15→19:06)
--- NOTE | 2017-12-29 17:24 | DR.H&P ---
H&P - History & Physical for Day of: H&P Date: 12/28/17 - Chief Complaint Chief Complaint: UNRESPONSIVE, SYNCOPE, SEPSIS - Allergies Allergies/Adverse Reactions: Allergies Allergy/AdvReac Type Severity Reaction Status Date / Time donepezil [From Aricept] Allergy Verified 10/03/17 20:57 Penicillins Allergy Verified 10/03/17 20:57 potassium Allergy Verified 10/03/17 20:57 potassium chloride Allergy Verified 10/03/17 20:57 SURGICAL TAPE Allergy Uncoded 10/03/17 20:57 - History of Present Illness History of Present Illness: IS A 72 YEAR OLD PATIENT OF OURS WHO IS A RESIDENT OF A SENIOR CARE OUT OF TOWN. HE WAS TAKEN TO THE [facility] EMERGENCY ROOM FOR COMPLAINTS OF UNRESPONSIVE AND FEVER. HE WAS FOUND TO HAVE AN ELEVATED CPK OF 5,457, CKMB 42, AND TROPONIN OF 1.409. OTHER ABNORMAL LAB VALUES INCLUDE THE FOLLOWING: WBC 14.99, RBC 3.05, HGB 9.7, HCT 31.0, GLUCOSE 128, BUN 34, BUN 34, CHLORIDE 113, ALBUMIN 1.8, ALP 211, ALT 130, AST 238, VALPROIC ACID LESS THAN 3.0, LACTIC ACID 2.4, INR 1.2. A BRAIN CT WAS OBTAINED AND REVEALED NO ACUTE INFARCT OR HEMORRHAGE. 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 NONSPECIFIC PERIVENTRICULAR WHITE MATTER CHANGES ARE NOTED, LIKELY DUE TO SMALL VESSEL ISCHEMIC DISEASE. INFLAMMATORY SINUS DISEASE. FAMILY REQUESTED THAT PATIENT BE TRANSFERRED TO [facility] UNDER OUR CARE. WE ADMITTED PATIENT TO THE INTESIVE CARE UNIT FOR FURTHER EVALUATION AND TREATMENT OF SEPSIS. WE WILL START PATIENT ON VANCOMYCIN 1GM IV DAILY. WE PLAN TO FOLLOW UP WITH AM LABS AND CONTINUE TO MONITOR PATIENT. - Past Medical History Past Medical History: Anxiety, Coronary Artery Disease, Hypertension, HI, Seizures Additional Medical History: skin cancer, SCHIZOPHRENIA - Past Surgical History Surgical History: Ortho Surgery, Other Additional Surgical History: right BKA, HERNIA SURGERY, STENTS X 3, CAROTID SURGERY - Family History Family Medical History: Cancer, Hypertension - Social History Alcohol Use: None Drug Use: None - Medications Home Medications: Buspirone HCl 10 mg [BUSPAR TAB 10 MG *] 1 tab PO TID 12/28/17 [History Confirmed 12/28/17] Escitalopram Oxalate [Lexapro] 20 mg PO DAILY 12/28/17 [History Confirmed ] Olanzapine [ZYPREXA 2.5 MG *] 5 mg PO DAILY 12/28/17 [History Confirmed 12/28/17 ] Olanzapine [Zyprexa 10 mg] 1 tab PO HS 12/28/17 [History Confirmed 12/28/17] Phenytoin Sodium Ext Rel [DILANTIN CAP 100 MG EXT REL *] 300 mg PO BID 12/28/17 [History Confirmed 12/28/17] - Review of Systems Constitutional: Fever, Weakness Eyes: No Symptoms Reported ENT: No Symptoms Reported Respiratory: No Symptoms Reported Gastrointestinal: No Symptoms Reported Genitourinary: No Symptoms Reported Musculoskeletal: No Symptoms Reported Skin: No Symptoms Reported Neurological: Weakness, Other (UNRESPONSIVE ) - Physical Exam Vital Signs: Temperature 99.9 F Pulse Rate [Apical] 129 Respiratory Rate 22 Blood Pressure [Right Arm] 85/53 Blood Pressure [Left Arm] 94/55 Blood Pressure 134/57 O2 Sat by Pulse Oximetry 96 Oriented: Unable to test Eyes: Normal Ear: Normal Nose: Normal Throat: Normal Respiratory: Diminished Throughout Cardiovascular: Tachycardia : Normal Auscultation: Bowel Sounds: Normal Palpation: Normal Tenderness: Normal Skin: Decreased [place] Musculoskeletal: Motor Deficit Psychiatric: Normal - Assessment/Plan (1) Sepsis Qualifiers: Sepsis type: sepsis due to unspecified organism Qualified Code(s): A41.9 - Sepsis, unspecified organism Status: Acute Plan: VANCOMYCIN 1GM IV DAILY, CONTINUE TO MONITOR (2) Abnormal cardiac enzyme level Status: Acute Plan: CONTINUE TO MONITOR
[2017-12-29 19:29] VITALS: BP 45/27
== END 2017-12-29 19:31 | disposition expired | DRG 872 ==
LOC: ICU 13:44
PROVIDERS: ADMIT Internal Medicine; ATTEND Internal Medicine
DX: A41.89 Other specified sepsis (principal); R55 Syncope and collapse; I25.10 Atherosclerotic heart disease of native coronary artery without angina pectoris; G40.89 Other seizures; I10 Essential (primary) hypertension; F41.8 Other specified anxiety disorders; R94.30 Abnormal result of cardiovascular function study, unspecified; Z66 Do not resuscitate; I46.9 Cardiac arrest, cause unspecified
CPT/HCPCS: 36415; 80053; 83605; 85025; A4216; J2271